=== PATIENT | female | born 1940 | race Caucasian/White ===

== ENCOUNTER 2020-06-19 11:06 | Observation (INO) ==
[2020-06-19] MEDS ORDERED: SODIUM CHLORIDE 0.9% 1000ML 1,000 ML IV STA (11:45)
--- NOTE | 2020-06-19 11:58 | XRay Report ---
XR chest 1V portable HISTORY: SEPSIS COMPARISON: None. FINDINGS: No focal lung consolidations to suggest pneumonia. No pleural effusions. No pneumothorax. T he heart is normal in size. There are low lung volumes. Lobular appearance to the right hilum measuri ng up to 2.2 cm. IMPRESSION: 1. No focal lung consolidations to suggest pneumonia. 2. Lobular appearance to the right hilum measuring up to 2.2 cm. This could be due to normal overlapp ing pulmonary vessels. Comparison to old studies or follow-up PA and lateral views of the chest are r ecommended to exclude the possibility of a right hilar nodule/lymph node. ACT 112: Negative or not required by law. Electronically signed by: Tono Page M.D. 06/19/2020 11:57 AM
[2020-06-19 12:03] LABS: Basophils # (auto) 0.04 K/uL (0-0.2); Basophils % (auto) 0.4 %; Eosinophils # (auto) 0.22 K/uL (0-0.5); Eosinophils % (auto) 2.3 %; Hematocrit (blood only) 31.5 % (37-47); Hemoglobin 9.5 g/dL (12.0-16.0); Immature Granulocytes # (auto) 0.02 K/uL (0.00-0.02); Immature Granulocytes % (auto) 0.2 %; Lymphocytes # (auto) 1.34 K/uL (1.2-3.4); Lymphocytes % (auto) 13.9 %; Mean Corpuscular Hemoglobin 26.5 pg (25-34); Mean Corpuscular Hgb Conc 30.2 g/dL (32-36); Mean Platelet Volume 9.4 fL (7.4-10.4); Monocytes # (auto) 0.86 K/uL (0.11-0.59); Monocytes % (auto) 8.9 %; Neutrophils # (auto) 7.15 K/uL (1.4-6.5); Neutrophils % (auto) 74.3 %; Platelet Count 330 K/uL (130-400); RDW Coefficient of Variation 14.8 % (11.5-14.5); RDW Standard Deviation 47.9 fL (36.4-46.3); Red Blood Count 3.58 M/uL (4.2-5.4); White Blood Count 9.63 K/uL (4.8-10.8)
[2020-06-19 12:14] LABS: Partial Thromboplastin Ratio 1.1; Partial Thromboplastin Time 30.7 Seconds (21.0-31.0)
[2020-06-19 12:24] LABS: Alanine Aminotransferase 20 U/L (12-78); Albumin Level 2.8 gm/dl (3.4-5.0); Aspartate Aminotransferase 29 U/L (15-37); BUN Creatinine Ratio 24.4 (10-20); Blood Urea Nitrogen 46 mg/dl (7-18); Carbon Dioxide 30 mmol/L (21-32); Chloride 108 mmol/L (98-107); Creatinine Clr Calc Pharmacy 29.2 ml/min; Est GFR (African American) 29.3; Est GFR (Non-African American) 25.3; Glucose 135 mg/dl (70-99); Potassium 4.5 mmol/L (3.5-5.1); Sodium 142 mmol/L (136-145)
[2020-06-19 12:28] LABS: Albumin Globulin Ratio 0.7 (0.9-2); Alkaline Phosphatase 82 U/L (45-117); Bilirubin,Total 0.2 mg/dl (0.2-1); Globulin 4.1 gm/dl (2.5-4.0); Total Protein 6.9 gm/dl (6.4-8.2); Troponin I < 0.015 ng/ml (0-0.045)
[2020-06-19 12:31] LABS: Appearance Urine Clear (Clear); Bilirubin Urine Negative (Negative); Blood Urine Negative (Negative); Color Urine Yellow; Glucose Urine UA Negative (Negative); Ketones Urine Negative (Negative); Leukocyte Esterase Urine Negative (Negative); Nitrite Urine Negative (Negative); Protein Urine Negative (Negative); Specific Gravity Urine 1.017 (1.000-1.030); Urobilinogen Urine Negative (Negative)
--- NOTE | 2020-06-19 13:07 | XRay Report ---
TWO VIEW CHEST CLINICAL HISTORY: Follow-up abnormal chest x-ray. FINDINGS: PA and lateral chest radiographs are compared to study dated 06/19/2020. The cardiomediasti nal silhouette is unremarkable. No hilar abnormality is identified. The finding of concern on the liyah or examination corresponds to the prominent right pulmonary artery. There is mild bibasilar atelectas is. The lungs and pleural spaces are otherwise clear. There is no pneumothorax. The skeletal structur es are osteopenic. The bony thorax appears intact. IMPRESSION: No active disease in the chest. ACT 112: Negative or not required by law. Electronically signed by: Josh Barton M.D. 06/19/2020 1:06 PM
--- NOTE | 2020-06-19 13:39 | CT Scan Report ---
CT SCAN OF THE BRAIN WITHOUT IV CONTRAST CLINICAL HISTORY: Change in mental status. COMPARISON STUDY: No priors. TECHNIQUE: Unenhanced axial CT scan of the brain is performed from the vertex to the skull base. A do se lowering technique was utilized adhering to the principles of ALARA. CT DOSE: 788.63 mGycm FINDINGS: Brain parenchyma: There are age-related involutional changes noting moderate subcortical and periven tricular microangiopathic change. There is no hemorrhage, mass effect, or evidence of acute territori al ischemia by CT criteria. Lopez-white matter differentiation is preserved. No extra-axial fluid home ection is seen. Ventricles, sulci, cisterns: Prominent secondary to involutional change. Intracranial vasculature: There is atherosclerotic calcification of the cavernous carotid and vertebr al arteries. Calvarium: Unremarkable. Sinuses and mastoids: There is a 10 mm retention cyst in the right maxillary antrum. The visualized p aranasal sinuses are otherwise clear. The mastoid air cells are well pneumatized. Orbits: The bony orbits are grossly intact. There are bilateral ocular lens implants. IMPRESSION: There is no hemorrhage, mass effect, or evidence of acute territorial ischemia by CT alejandra langston. ACT 112: Negative or not required by law. Electronically signed by: Josh Barton M.D. 06/19/2020 1:37 PM
[2020-06-19] MEDS ORDERED: CEFEPIME 2,000 MG/20 ML VIAL IV STA (14:36)
--- NOTE | 2020-06-19 16:32 | History & Physical Report ---
Date of Service June 19, 2020 Assessment & Plan (1) Cellulitis of both lower extremities: * Patient presents with extensive cellulitic changes to the bilateral lower extremities. * Initially treated with cefepime in the emergency department. We will continue at this time. * Extensive scaling of skin and likely chronic venous changes with the superimposed cellulitis. * Appreciate wound consult for guidance. * Had a long conversation with the patient's son regarding his mother's condition. He states that she has been declining over the last few weeks. He states that the cellulitis of the bilateral lower extremities has been reoccurring. He is her medical proxy at this point. He states that he does have paperwork available for this. He reports that this time, and in conversation with his mother, it is agreed that she would be DNR/DNI at this time. (2) Confusion: * No focal neurological exam findings. * CT head unremarkable. * Likely encephalopathy secondary to underlying infectious changes. * Continue to monitor with treatment course. (3) Dyslipidemia: * Continue home medications. (4) IDDM (insulin dependent diabetes mellitus): * Appreciate pharmacy consultation for glycemic management. (5) Mood disorder: * Continue home medications as prescribed. (6) Hypertension: * Continue home medications as prescribed. History of Present Illness Primary Care Provider: Kit Cancino Patient is a 79-year-old female with a significant past medical history of diabetes, hypertension, mood disorder, and recurrent cellulitis to the lower extremities. Patient lives at a nursing facility and [place]. Son reports that the patient has been "loopy" for the past few weeks. He reports that she has been in contact with him by phone and states that she has been confused and fe els as though she is living in someone else's house and she is being evicted. Per son, she has had a history of ESBL UTI as well. They did request that the patient be sent to our facility from her primary residence at [facility] versus [place] where she is usually treated. Upon evaluation in the emergency department, the patient is awake and alert. She is pleasantly confused at times. She knows that she is at a hospital. She knows she is in [place]. Otherwise, she is a poor historian. She complains of pain to the bilateral lower extremities. Otherwise, she offers no other complaints at this time. Allergies Allergy/AdvReac Type Severity Reaction Status Date / Time iodine Allergy Unknown Unverified 06/19/20 13:02 Penicillins Allergy Unknown Unverified 06/19/20 13:02 Sulfa (Sulfonamide Allergy Unknown Unverified 06/19/20 13:02 Antibiotics) Home Medications Medication Instructions Recorded Confirmed Type Lantus Solostar U-100 Insulin 10 unit SUBCUT DAILY 06/19/20 06/19/20 History acetaminophen 650 mg PO BID 06/19/20 06/19/20 History ascorbic acid (vitamin C) [Vitamin 500 mg PO BID 06/19/20 06/19/20 History C] aspirin 81 mg PO DAILY 06/19/20 06/19/20 History bumetanide 1 mg PO DAILY 06/19/20 06/19/20 History cholecalciferol (vitamin D3) 125 mcg PO DAILY 06/19/20 06/19/20 History [Vitamin D3] citalopram 20 mg PO DAILY 06/19/20 06/19/20 History gabapentin 300 mg PO BID 06/19/20 06/19/20 History gabapentin 600 mg PO HS 06/19/20 06/19/20 History insulin lispro [Humalog KwikPen 4 unit SUBCUT TID 06/19/20 06/19/20 History Insulin] meloxicam 7.5 mg PO DAILY 06/19/20 06/19/20 History metformin 1,000 mg PO DAILY 06/19/20 06/19/20 History metoprolol tartrate 25 mg PO BID 06/19/20 06/19/20 History oxybutynin chloride 10 mg PO HS 06/19/20 06/19/20 History potassium chloride 10 meq PO HS 06/19/20 06/19/20 History simvastatin 40 mg PO DAILY 06/19/20 06/19/20 History zinc gluconate 50 mg PO BID 06/19/20 06/19/20 History docusate sodium 100 mg PO BID PRN 10 Days #20 cap 06/23/20 Rx lisinopril 10 mg PO QAM 30 Days #30 tab 06/23/20 Rx Past Med/Surg History Medical History Dyslipidemia Hypertension IDDM (insulin dependent diabetes mellitus) Mood disorder Social History Smoking Status: Never smoker Second Hand Exposure: No; Do You Dip or Chew Tobacco: No; Tobacco Cessation Education Requested by Patient: No Hx Substance Use: No Preferred Language: Tunisian Communication Ability: Effective Beliefs That Will Affect Care: None Current Living Situation: Personal Care Facility Current Living Situation Comment: [facility] Feels Safe at Home: Yes Assistive Devices: Walker Review of Systems Review of Systems: A complete 10 point review of systems was reviewed with the patient with pertinent positives and negatives as per history of present illness. All else were negative. Physical Exam Physical Exam: VITAL SIGNS - Vital signs and nursing notes were reviewed. GENERAL - 79-year-old female appearing her stated age who is in no acute dis tress. Pleasantly confused. SKIN -significant erythema to the bilateral lower extremities from the mid calf to the feet with moderate edema and scaling of the skin. Moderately tender to touch. HEAD - NC/AT. EYES - PERRL with EOMI bilaterally. Sclera anicteric. EARS - No deformities of external structures noted on gross examination bilaterally. NOSE - Midline and without cyanosis. No epistaxis or purulent drainage noted. MOUTH/OROPHARYNX - Without perioral cyanosis. Buccal mucosa pink and dry. NECK - Neck with FROM. Supple to palpation. No nuchal rigidity. LUNGS - Chest wall symmetric without accessory muscle use, intercostals retractions, or central cyanosis. Normal vesicular breath sounds CTA B/L. No wheezes, rales, or rhonchi appreciated. CARDIAC - RRR with S1/S2. No murmur, rubs, or gallops appreciated. ABDOMEN - Abdominal contour obese without pulsations or visible masses. BS normoactive all four quadrants. No tenderness, palpable masses, hepatosplenomegaly, or ascites noted. EXTREMITIES - No clubbing or peripheral cyanosis. No pretibial edema present. +3/5 radial and dorsalis pedis pulses palpated throughout. +5/5 strength noted in UE/LE bilaterally. NEUROLOGIC - Cranial nerves II through XII grossly intact. Sensory intact to light touch throughout. PSYCH -patient is awake and alert. She knows that she is in [place] and had a hospital. She is able to answer simple questions appropriately. She is pleasantly confused at times. Results & Data Results & Data ([facility]) Vital Signs (Past 12 Hours) Vital Signs Temp Pulse Resp BP Pulse Ox 06/19/20 15:31 121/74 94 06/19/20 15:30 94 06/19/20 15:20 95 06/19/20 15:10 94 06/19/20 15:01 95 06/19/20 15:00 122/73 94 06/19/20 14:50 89 95 06/19/20 14:40 90 95 06/19/20 14:31 88 15 93 06/19/20 14:30 91 H 13 111/62 93 06/19/20 14:20 89 12 93 06/19/20 14:10 89 14 94 06/19/20 14:01 91 H 12 95 06/19/20 14:00 92 H 12 126/75 95 06/19/20 13:50 90 14 96 06/19/20 13:40 92 H 14 99 06/19/20 13:39 90 16 109/72 99 06/19/20 13:38 99 H 16 06/19/20 13:10 95 H 06/19/20 13:01 85 93 06/19/20 13:00 95 H 150/85 H 95 06/19/20 12:50 92 H 94 06/19/20 12:45 93 H 130/79 95 06/19/20 12:44 105 H 96 06/19/20 12:20 91 H 16 94 06/19/20 12:10 93 H 19 95 06/19/20 12:05 90 13 128/106 H 97 06/19/20 12:01 77 15 141/78 H 06/19/20 12:00 90 16 06/19/20 11:50 92 H 23 96 06/19/20 11:46 97 06/19/20 11:40 90 14 06/19/20 11:30 90 14 06/19/20 11:21 90 14 98 06/19/20 11:10 37.0 C 90 22 142/65 H 98 06/19/20 11:09 90 12 142/65 H 99 Supervising Physician Co-Signing Physician Notes Attending addendum: I have physically seen this patient, have supervised the YOLANDA's activities, and agree with the H&P unless as otherwise noted. Assessment and Plan: Bilateral lower extremity cellulitis- Continue cefepime begun in the ED Consult wound care. Confusion- Likely metabolic encephalopathy superimposed on general decline. CT head without acute findings. Follow response to cellulitis to see if symptoms improve IDDM- Glycemic consult Remaining orders and notations as noted PG Care Time/CCT Total # of Minutes Spent Total Time Spent with Patient: Total time spent is greater than 50% in coordination of care (as documented) at patient's floor/unit and/or counseling patient: Coding Level of Care Code 70211 Initial Inpt Care Lvl 3 Diagnoses Cellulitis of both lower extremities L03.115; L03.116 Confusion R41.0 Dyslipidemia E78.5 IDDM (insulin dependent diabetes mellitus) Mood disorder F39 Hypertension I10 Time Spent (min) 40
--- NOTE | 2020-06-19 19:01 | Emergency Department Note ---
History of Present Illness General Chief complaint: Infection Stated complaint: CELLULITIS BILAT LEGS, ESBL URINE Time Seen by Provider: 06/19/20 11:13 Source: patient (Unreliable), family (Son over the phone), RN notes reviewed and old records reviewed ([facility]) Mode of arrival: EMS Limitations: altered mental status (Unreliable, altered) History of Present Illness Provider complaint: Altered mental status "loopy," recent UTI, frequent leg infections This patient is a 79-year-old female who presents emergency department with complaints of altered mentation. Patient is a resident at the [facility] and has history of frequent UTI and bilateral lower extremity cellulitis. Patient was apparently admitted to [facility] last year for a similar presentation. Per her son she finished a course of antibiotics for UTI, but the symptoms did not clear. There has been no vomiting or fever reported. Pt denies SOB and CP. Home Medications Medication Instructions Recorded Confirmed Type acetaminophen 650 mg PO BID 06/19/20 06/19/20 History amlodipine 5 mg PO DAILY 06/19/20 06/19/20 History ascorbic acid (vitamin C) [Vitamin 500 mg PO BID 06/19/20 06/19/20 History C] aspirin [Aspirin Low-Strength] 81 mg PO DAILY 06/19/20 06/19/20 History bumetanide 1 mg PO DAILY 06/19/20 06/19/20 History cholecalciferol (vitamin D3) 125 mcg PO DAILY 06/19/20 06/19/20 History [Vitamin D3] citalopram 20 mg PO DAILY 06/19/20 06/19/20 History doxycycline hyclate 100 mg PO DAILY 06/19/20 06/19/20 History gabapentin 300 mg PO BID 06/19/20 06/19/20 History gabapentin 600 mg PO HS 06/19/20 06/19/20 History insulin glargine [Lantus Solostar 10 unit SUBCUT DAILY 06/19/20 06/19/20 History U-100 Insulin] insulin lispro [Humalog KwikPen 4 unit SUBCUT TID 06/19/20 06/19/20 History Insulin] meloxicam 7.5 mg PO DAILY 06/19/20 06/19/20 History metformin 1,000 mg PO DAILY 06/19/20 06/19/20 History metoprolol tartrate 25 mg PO BID 06/19/20 06/19/20 History oxybutynin chloride 10 mg PO HS 06/19/20 06/19/20 History potassium chloride 10 meq PO HS 06/19/20 06/19/20 History simvastatin 40 mg PO DAILY 06/19/20 06/19/20 History zinc gluconate 50 mg PO BID 06/19/20 06/19/20 History zolpidem 5 mg PO DAILY 06/19/20 06/19/20 History Allergies Allergy/AdvReac Type Severity Reaction Status Date / Time iodine Allergy Unknown Unverified 06/19/20 13:02 Penicillins Allergy Unknown Unverified 06/19/20 13:02 Sulfa (Sulfonamide Allergy Unknown Unverified 06/19/20 13:02 Antibiotics) Past Med/Surg History Medical History Dyslipidemia Hypertension IDDM (insulin dependent diabetes mellitus) Mood disorder Social History Smoking Status: Never smoker Second Hand Exposure: No; Do You Dip or Chew Tobacco: No; Tobacco Cessation Education Requested by Patient: No Hx Substance Use: No Preferred Language: Bulgarian Communication Ability: Effective Beliefs That Will Affect Care: None Current Living Situation: Personal Care Facility Current Living Situation Comment: Andriy Cochran Feels Safe at Home: Yes Assistive Devices: Walker Review of Systems See HPI for pertinent positives & negatives. and A total of 10 systems reviewed and were otherwise negative Physical Exam Vital Signs Vital Signs - 24 hr 06/19/20 11:09 06/19/20 11:10 06/19/20 11:21 Temperature 37.0 C Temperature Source Oral Pulse Rate 90 90 90 Pulse Rate from SpO2 Sensor 89 89 Respiratory Rate 12 22 14 Blood Pressure 142/65 H 142/65 H Blood Pressure Mean 109 90 Blood Pressure Position Sitting Pulse Oximetry 99 98 98 Oxygen Delivery Method Room Air Sepsis Recent Fever Within 48 Hours No Sepsis New/Unexplained Change in Mental Status No Sepsis Action Taken by Nursing No Action Required 06/19/20 11:30 06/19/20 11:40 06/19/20 11:46 Temperature Temperature Source Pulse Rate 90 90 Pulse Rate from SpO2 Sensor Respiratory Rate 14 14 Blood Pressure Blood Pressure Mean Blood Pressure Position Pulse Oximetry 97 Oxygen Delivery Method Room Air Sepsis Recent Fever Within 48 Hours Sepsis New/Unexplained Change in Mental Status Sepsis Action Taken by Nursing 06/19/20 11:50 06/19/20 12:00 06/19/20 12:01 Temperature Temperature Source Pulse Rate 92 H 90 77 Pulse Rate from SpO2 Sensor 92 H Respiratory Rate 23 16 15 Blood Pressure 141/78 H Blood Pressure Mean 93 Blood Pressure Position Pulse Oximetry 96 Oxygen Delivery Method Room Air Sepsis Recent Fever Within 48 Hours Sepsis New/Unexplained Change in Mental Status Sepsis Action Taken by Nursing 06/19/20 12:05 06/19/20 12:10 06/19/20 12:20 Temperature Temperature Source Pulse Rate 90 93 H 91 H Pulse Rate from SpO2 Sensor 90 95 H 89 Respiratory Rate 13 19 16 Blood Pressure 128/106 H Blood Pressure Mean 117 Blood Pressure Position Pulse Oximetry 97 95 94 Oxygen Delivery Method Room Air Room Air Sepsis Recent Fever Within 48 Hours Sepsis New/Unexplained Change in Mental Status Sepsis Action Taken by Nursing 06/19/20 12:44 06/19/20 12:45 06/19/20 12:50 Temperature Temperature Source Pulse Rate 105 H 93 H 92 H Pulse Rate from SpO2 Sensor 93 H 92 H 92 H Respiratory Rate Blood Pressure 130/79 Blood Pressure Mean 97 Blood Pressure Position Pulse Oximetry 96 95 94 Oxygen Delivery Method Room Air Room Air Room Air Sepsis Recent Fever Within 48 Hours Sepsis New/Unexplained Change in Mental Status Sepsis Action Taken by Nursing 06/19/20 13:00 06/19/20 13:01 06/19/20 13:10 Temperature Temperature Source Pulse Rate 95 H 85 95 H Pulse Rate from SpO2 Sensor 95 H 94 H Respiratory Rate Blood Pressure 150/85 H Blood Pressure Mean 102 Blood Pressure Position Pulse Oximetry 95 93 Oxygen Delivery Method Room Air Room Air Sepsis Recent Fever Within 48 Hours Sepsis New/Unexplained Change in Mental Status Sepsis Action Taken by Nursing 06/19/20 13:38 06/19/20 13:39 06/19/20 13:40 Temperature Temperature Source Pulse Rate 99 H 90 92 H Pulse Rate from SpO2 Sensor 89 92 H Respiratory Rate 16 16 14 Blood Pressure 109/72 Blood Pressure Mean 89 Blood Pressure Position Pulse Oximetry 99 99 Oxygen Delivery Method Room Air Room Air Sepsis Recent Fever Within 48 Hours Sepsis New/Unexplained Change in Mental Status Sepsis Action Taken by Nursing 06/19/20 13:50 06/19/20 14:00 06/19/20 14:01 Temperature Temperature Source Pulse Rate 90 92 H 91 H Pulse Rate from SpO2 Sensor 90 91 H 90 Respiratory Rate 14 12 12 Blood Pressure 126/75 Blood Pressure Mean 96 Blood Pressure Position Pulse Oximetry 96 95 95 Oxygen Delivery Method Room Air Room Air Room Air Sepsis Recent Fever Within 48 Hours Sepsis New/Unexplained Change in Mental Status Sepsis Action Taken by Nursing 06/19/20 14:10 06/19/20 14:20 06/19/20 14:30 Temperature Temperature Source Pulse Rate 89 89 91 H Pulse Rate from SpO2 Sensor 89 89 90 Respiratory Rate 14 12 13 Blood Pressure 111/62 Blood Pressure Mean 80 Blood Pressure Position Pulse Oximetry 94 93 93 Oxygen Delivery Method Room Air Room Air Room Air Sepsis Recent Fever Within 48 Hours Sepsis New/Unexplained Change in Mental Status Sepsis Action Taken by Nursing 06/19/20 14:31 06/19/20 14:40 06/19/20 14:50 Temperature Temperature Source Pulse Rate 88 90 89 Pulse Rate from SpO2 Sensor 88 90 89 Respiratory Rate 15 Blood Pressure Blood Pressure Mean Blood Pressure Position Pulse Oximetry 93 95 95 Oxygen Delivery Method Room Air Room Air Room Air Sepsis Recent Fever Within 48 Hours Sepsis New/Unexplained Change in Mental Status Sepsis Action Taken by Nursing 06/19/20 15:00 06/19/20 15:01 06/19/20 15:10 Temperature Temperature Source Pulse Rate Pulse Rate from SpO2 Sensor 91 H 90 89 Respiratory Rate Blood Pressure 122/73 Blood Pressure Mean 101 Blood Pressure Position Pulse Oximetry 94 95 94 Oxygen Delivery Method Room Air Room Air Room Air Sepsis Recent Fever Within 48 Hours Sepsis New/Unexplained Change in Mental Status Sepsis Action Taken by Nursing 06/19/20 15:20 06/19/20 15:30 06/19/20 15:31 Temperature Temperature Source Pulse Rate Pulse Rate from SpO2 Sensor 90 92 H 93 H Respiratory Rate Blood Pressure 121/74 Blood Pressure Mean 79 Blood Pressure Position Pulse Oximetry 95 94 94 Oxygen Delivery Method Room Air Room Air Room Air Sepsis Recent Fever Within 48 Hours Sepsis New/Unexplained Change in Mental Status Sepsis Action Taken by Nursing 06/19/20 15:32 06/19/20 15:40 06/19/20 15:50 Temperature Temperature Source Pulse Rate Pulse Rate from SpO2 Sensor 92 H 91 H 87 Respiratory Rate Blood Pressure Blood Pressure Mean Blood Pressure Position Pulse Oximetry 92 95 96 Oxygen Delivery Method Room Air Room Air Room Air Sepsis Recent Fever Within 48 Hours Sepsis New/Unexplained Change in Mental Status Sepsis Action Taken by Nursing 06/19/20 16:00 06/19/20 16:01 06/19/20 16:10 Temperature Temperature Source Pulse Rate Pulse Rate from SpO2 Sensor 88 88 91 H Respiratory Rate 18 16 Blood Pressure 132/63 Blood Pressure Mean 108 Blood Pressure Position Pulse Oximetry 97 97 98 Oxygen Delivery Method Room Air Room Air Room Air Sepsis Recent Fever Within 48 Hours Sepsis New/Unexplained Change in Mental Status Sepsis Action Taken by Nursing 06/19/20 16:20 06/19/20 16:30 06/19/20 16:31 Temperature Temperature Source Pulse Rate Pulse Rate from SpO2 Sensor 92 H 92 H 93 H Respiratory Rate 20 18 Blood Pressure 139/70 Blood Pressure Mean 101 Blood Pressure Position Pulse Oximetry 94 95 96 Oxygen Delivery Method Room Air Room Air Room Air Sepsis Recent Fever Within 48 Hours Sepsis New/Unexplained Change in Mental Status Sepsis Action Taken by Nursing 06/19/20 16:40 06/19/20 16:50 06/19/20 18:42 Temperature Temperature Source Pulse Rate Pulse Rate from SpO2 Sensor 95 H 92 H Respiratory Rate 18 Blood Pressure Blood Pressure Mean Blood Pressure Position Pulse Oximetry 100 93 Oxygen Delivery Method Room Air Room Air Room Air Sepsis Recent Fever Within 48 Hours Sepsis New/Unexplained Change in Mental Status Sepsis Action Taken by Nursing Vital signs reviewed. General: Chronically ill-appearing 79 yo female, in no significant distress. HEENT: No scleral icterus, PERRLA, neck supple. Atraumatic. Cardiovascular: Regular rate and rhythm, no extra sounds. Pulmonary: Clear to auscultation bilaterally, normal work of breathing. Abdomen: Soft, nontender, nondistended, positive bowel sounds. Musculoskeletal: Atraumatic, no peripheral edema. Neurologic: Patient somnolent but awake, disoriented to place and city, but when corrected can repeat correctly. follows commands put generally weak. Skin: Warm, dry, BLE with venous stasis changes, crusting/flaking to distal skin. Minimal oozing and slight underlying erythema. No lymphangitic streaking. Course Administered Medications Acetaminophen (Acetaminophen 325 Mg Tab) 650 mg PO BID DONNA Stop: 07/19/20 20:59 Last Admin: 06/22/20 09:14 Dose: 650 mg Documented by: [id number] Admin: 06/21/20 20:13 Dose: 650 mg Documented by: [id number] Admin: 06/21/20 07:58 Dose: 650 mg Documented by: [id number] Admin: 06/20/20 21:33 Dose: 650 mg Documented by: [id number] Admin: 06/20/20 08:21 Dose: 650 mg Documented by: [id number] Admin: 06/19/20 21:43 Dose: 650 mg Documented by: [id number] Amlodipine Besylate (Amlodipine Besylate 5 Mg Tab) 5 mg PO DAILY DONNA Stop: 07/20/20 08:59 Last Admin: 06/22/20 09:15 Dose: 5 mg Documented by: [id number] Admin: 06/21/20 07:56 Dose: 5 mg Documented by: [id number] Admin: 06/20/20 08:17 Dose: 5 mg Documented by: [id number] Ascorbic Acid (Ascorbic Acid 500 Mg Tab) 500 mg PO BID DONNA Stop: 07/19/20 20:59 Last Admin: 06/22/20 09:15 Dose: 500 mg Documented by: [id number] Admin: 06/21/20 20:15 Dose: 500 mg Documented by: [id number] Admin: 06/21/20 07:54 Dose: 500 mg Documented by: [id number] Admin: 06/20/20 21:34 Dose: 500 mg Documented by: [id number] Admin: 06/20/20 08:21 Dose: 500 mg Documented by: [id number] Admin: 06/19/20 21:42 Dose: 500 mg Documented by: [id number] Aspirin (Aspirin 81 Mg Ectab) 81 mg PO DAILY DONNA Stop: 07/20/20 08:59 Last Admin: 06/22/20 09:16 Dose: 81 mg Documented by: [id number] Admin: 06/21/20 07:55 Dose: 81 mg Documented by: [id number] Admin: 06/20/20 08:14 Dose: 81 mg Documented by: [id number] Bumetanide (Bumetanide 1 Mg Tab) 1 mg PO DAILY DONNA Stop: 07/20/20 08:59 Last Admin: 06/22/20 09:14 Dose: 1 mg Documented by: [id number] Admin: 06/21/20 07:56 Dose: 1 mg Documented by: [id number] Admin: 06/20/20 08:13 Dose: 1 mg Documented by: [id number] Cefdinir (Cefdinir 300 Mg Cap) 300 mg PO Q12 DONNA Stop: 06/28/20 20:59 Last Admin: 06/22/20 09:15 Dose: 300 mg Documented by: [id number] Admin: 06/21/20 20:15 Dose: 300 mg Documented by: [id number] Citalopram Hydrobromide (Citalopram 20 Mg Tab) 20 mg PO DAILY DONNA Stop: 07/20/20 08:59 Last Admin: 06/22/20 09:14 Dose: 20 mg Documented by: [id number] Admin: 06/21/20 07:55 Dose: 20 mg Documented by: [id number] Admin: 06/20/20 08:14 Dose: 20 mg Documented by: [id number] Gabapentin (Gabapentin 600 Mg Tab) 600 mg PO HS DONNA Stop: 07/19/20 20:59 Last Admin: 06/21/20 20:16 Dose: 600 mg Documented by: [id number] Admin: 06/20/20 21:34 Dose: 600 mg Documented by: [id number] Admin: 06/19/20 21:54 Dose: 600 mg Documented by: [id number] Gabapentin (Gabapentin 300 Mg Cap) 300 mg PO BID@0900,1400 DONNA Stop: 07/20/20 08:59 Last Admin: 06/22/20 15:19 Dose: 300 mg Documented by: [id number] Admin: 06/22/20 09:15 Dose: 300 mg Documented by: [id number] Admin: 06/21/20 14:00 Dose: 300 mg Documented by: [id number] Admin: 06/21/20 07:57 Dose: 300 mg Documented by: [id number] Admin: 06/20/20 13:59 Dose: 300 mg Documented by: [id number] Admin: 06/20/20 08:17 Dose: 300 mg Documented by: [id number] Heparin Sodium (Porcine) (Heparin Sod 5,000 Unit/0.5 Ml Vial) 7,500 units SQ Q8 DONNA Stop: 07/19/20 21:59 Last Admin: 06/22/20 15:18 Dose: Not Given Documented by: [id number] Admin: 06/22/20 05:12 Dose: 7,500 units Documented by: [id number] Admin: 06/21/20 20:14 Dose: 7,500 units Documented by: [id number] Admin: 06/21/20 14:03 Dose: 7,500 units Documented by: [id number] Admin: 06/21/20 06:10 Dose: 7,500 units Documented by: [id number] Admin: 06/20/20 21:34 Dose: 7,500 units Documented by: [id number] Admin: 06/20/20 13:59 Dose: 7,500 units Documented by: [id number] Admin: 06/20/20 05:07 Dose: 7,500 units Documented by: [id number] Admin: 06/19/20 21:55 Dose: 7,500 units Documented by: [id number] Insulin Aspart (Insulin Aspart 100 Units/Ml 3 Ml Pen) 0 units SC ACHS DONNA; Protocol Stop: 07/19/20 20:59 Last Admin: 06/22/20 17:20 Dose: 5 units Documented by: [id number] Cosigned by: [id number] Admin: 06/22/20 12:18 Dose: 7 units Documented by: [id number] Cosigned by: [id number] Admin: 06/22/20 09:09 Dose: 3 units Documented by: [id number] Cosigned by: [id number] Admin: 06/21/20 20:56 Dose: Not Given Documented by: [id number] Admin: 06/21/20 17:51 Dose: 6 units Documented by: [id number] Cosigned by: [id number] Admin: 06/21/20 12:12 Dose: 11 units Documented by: [id number] Cosigned by: [id number] Admin: 06/21/20 08:23 Dose: 4 units Documented by: [id number] Cosigned by: [id number] Admin: 06/20/20 21:35 Dose: Not Given Documented by: [id number] Admin: 06/20/20 17:30 Dose: 9 units Documented by: [id number] Cosigned by: [id number] Admin: 06/20/20 12:25 Dose: 9 units Documented by: [id number] Cosigned by: [id number] Admin: 06/20/20 09:02 Dose: 5 units Documented by: [id number] Cosigned by: [id number] Admin: 06/19/20 22:01 Dose: Not Given Documented by: [id number] Cosigned by: [id number] Insulin Glargine (Insulin Glargine Solostar 100 Units/Ml 3 Ml Pen) 10 units SC DAILY DONNA Stop: 07/20/20 08:59 Last Admin: 06/22/20 09:11 Dose: 10 units Documented by: [id number] Cosigned by: [id number] Admin: 06/21/20 08:22 Dose: 10 units Documented by: [id number] Cosigned by: [id number] Admin: 06/20/20 09:01 Dose: 10 units Documented by: [id number] Cosigned by: [id number] Meloxicam (Meloxicam 7.5 Mg Tab) 7.5 mg PO DAILY [facility] Stop: 07/20/20 08:59 Last Admin: 06/22/20 09:14 Dose: 7.5 mg Documented by: [id number] Admin: 06/21/20 07:57 Dose: 7.5 mg Documented by: [id number] Admin: 06/20/20 09:03 Dose: 7.5 mg Documented by: [id number] Metoprolol Tartrate (Metoprolol Tartrate 25 Mg Tab) 25 mg PO BID [facility] Stop: 07/19/20 20:59 Last Admin: 06/22/20 09:14 Dose: 25 mg Documented by: [id number] Admin: 06/21/20 20:13 Dose: 25 mg Documented by: [id number] Admin: 06/21/20 07:56 Dose: 25 mg Documented by: [id number] Admin: 06/20/20 21:34 Dose: 25 mg Documented by: [id number] Admin: 06/20/20 08:15 Dose: 25 mg Documented by: [id number] Admin: 06/19/20 21:43 Dose: 25 mg Documented by: [id number] Miconazole Nitrate (Miconazole Nitrate Powder 43 Gm) 1 appln EXT PRN PRN PRN Reason: Affected Skin Folds Stop: 07/19/20 20:14 Last Admin: 06/19/20 21:46 Dose: 1 appln Documented by: [id number] Oxybutynin Chloride (Oxybutynin Chloride Xl 5 Mg Tabcr) 10 mg PO HS [facility] Stop: 07/19/20 20:59 Last Admin: 06/21/20 20:15 Dose: 10 mg Documented by: [id number] Admin: 06/20/20 21:34 Dose: 10 mg Documented by: [id number] Admin: 06/19/20 21:41 Dose: 10 mg Documented by: [id number] Potassium Chloride (Potassium Chloride 10 Meq Tabcr) 10 meq PO [facility] Stop: 07/19/20 20:59 Last Admin: 06/21/20 20:13 Dose: 10 meq Documented by: [id number] Admin: 06/20/20 21:34 Dose: 10 meq Documented by: [id number] Admin: 06/19/20 21:41 Dose: 10 meq Documented by: [id number] Simvastatin (Simvastatin 40 Mg Tab) 40 mg PO DAILY DONNA Stop: 07/20/20 08:59 Last Admin: 06/22/20 09:16 Dose: 40 mg Documented by: [id number] Admin: 06/21/20 07:57 Dose: 40 mg Documented by: [id number] Admin: 06/20/20 08:23 Dose: 40 mg Documented by: [id number] Vitamin D (Cholecalciferol 1,000 Units 25 Mcg Tab) 5,000 units PO DAILY DONNA Stop: 07/20/20 08:59 Last Admin: 06/22/20 09:16 Dose: 5,000 units Documented by: [id number] Admin: 06/21/20 07:55 Dose: 5,000 units Documented by: [id number] Admin: 06/20/20 08:22 Dose: 5,000 units Documented by: [id number] Zinc Sulfate (Zinc Sulfate 220 Mg Capsule) 220 mg PO BID DONNA Stop: 07/19/20 20:59 Last Admin: 06/22/20 09:14 Dose: 220 mg Documented by: [id number] Admin: 06/21/20 20:13 Dose: 220 mg Documented by: [id number] Admin: 06/21/20 07:54 Dose: 220 mg Documented by: [id number] Admin: 06/20/20 21:38 Dose: 220 mg Documented by: [id number] Admin: 06/20/20 09:03 Dose: 220 mg Documented by: [id number] Admin: 06/19/20 21:41 Dose: 220 mg Documented by: [id number] Discontinued Medications Gabapentin (Gabapentin 300 Mg Cap) 300 mg PO BID DONNA Stop: 07/19/20 20:59 Last Admin: 06/19/20 23:32 Dose: Not Given Documented by: [id number] Sodium Chloride (Nss 1000ml) 1,000 mls @ 125 mls/hr IV .Q8H STA Stop: 06/19/20 19:44 Last Infusion: 06/19/20 23:32 Dose: 0 mls/hr Documented by: [id number] Infusion: 06/19/20 18:08 Dose: 0 mls/hr Documented by: [id number] Admin: 06/19/20 12:20 Dose: 125 mls/hr Documented by: [id number] Cefepime HCl (Maxipime) 2,000 mg in 20 mls @ 5 mls/min IV NOW STA; Protocol Stop: 06/19/20 14:39 Last Admin: 06/19/20 15:15 Dose: 5 mls/min Documented by: [id number] Sodium Chloride (Nss 1000ml) 1,000 mls @ 80 mls/hr IV .[id number] [facility] Stop: 07/19/20 19:44 Last Infusion: 06/21/20 07:14 Dose: 0 mls/hr Documented by: [id number] Infusion: 06/21/20 07:14 Dose: 0 mls/hr Documented by: [id number] Admin: 06/20/20 21:37 Dose: 80 mls/hr Documented by: [id number] Infusion: 06/20/20 21:36 Dose: 80 mls/hr Documented by: [id number] Admin: 06/20/20 09:06 Dose: 80 mls/hr Documented by: [id number] Infusion: 06/20/20 09:06 Dose: 80 mls/hr Documented by: [id number] Admin: 06/19/20 21:09 Dose: 80 mls/hr Documented by: [id number] Cefepime HCl 2,000 mg/ Syringe 20 mls @ 5 mls/min IV Q12H [facility]; Protocol Stop: 06/27/20 11:29 Last Admin: 06/21/20 11:22 Dose: 5 mls/min Documented by: [id number] Admin: 06/20/20 22:29 Dose: 5 mls/min Documented by: [id number] Admin: 06/20/20 12:18 Dose: 5 mls/min Documented by: [id number] Insulin Aspart (Insulin Aspart 100 Units/Ml 3 Ml Pen) 0 units SC TODAY@0000,0400 [facility]; Protocol Stop: 06/20/20 04:01 Last Admin: 06/20/20 04:48 Dose: Not Given Documented by: [id number] Cosigned by: [id number] Admin: 06/19/20 23:29 Dose: Not Given Documented by: [id number] Cosigned by: [id number] Medical Decision Making Differential Diagnosis Infection, hypoglycemia, electrolyte abnormalities, overdose, toxicologic, cardiac sources, intracerebral event, neurologic, trauma, as well as other pathologies. Medical Records Attestation: I reviewed the patient's medical records. Home Medications Current Medication List: was personally reviewed by me Laboratory Data Attestation: I reviewed the patient's lab results. Result diagrams: 06/22/20 05:56 06/22/20 05:56 Lab Results 06/19/20 06/19/20 06/19/20 Range/Units 11:52 11:52 11:52 WBC 9.63 (4.8-10.8) K/uL RBC 3.58 L (4.2-5.4) M/uL Hgb 9.5 L (12.0-16.0) g/dL Hct 31.5 L (37-47) % MCV 88.0 (80-100) fL MCH 26.5 (25-34) pg MCHC 30.2 L (32-36) g/dL RDW Std Deviation 47.9 H (36.4-46.3) fL RDW Coeff of Tanvi 14.8 H (11.5-14.5) % Plt Count 330 (130-400) K/uL MPV 9.4 (7.4-10.4) fL Immature Gran % (Auto) 0.2 % Neut % (Auto) 74.3 % Lymph % (Auto) 13.9 % Bertie % (Auto) 8.9 % Eos % (Auto) 2.3 % Baso % (Auto) 0.4 % Neut # (Auto) 7.15 H (1.4-6.5) K/uL Lymph # (Auto) 1.34 (1.2-3.4) K/uL Bertie # (Auto) 0.86 H (0.11-0.59) K/uL Eos # (Auto) 0.22 (0-0.5) K/uL Baso # (Auto) 0.04 (0-0.2) K/uL Immature Gran # (Auto) 0.02 (0.00-0.02) K/uL ESR (0-21) mm/hr PT 11.0 (9.0-12.0) Seconds INR 1.0 (0.9-1.1) APTT 30.7 (21.0-31.0) Seconds PTT Ratio 1.1 Sodium 142 (136-145) mmol/L Potassium 4.5 (3.5-5.1) mmol/L Chloride 108 H (98-107) mmol/L Carbon Dioxide 30 (21-32) mmol/L Anion Gap 4.0 (3-11) BUN 46 H (7-18) mg/dl Creatinine 1.87 H (0.6-1.2) mg/dl Est Cr Clr Drug Dosing 29.2 ml/min Est GFR ( Amer) 29.3 Est GFR (Non-Af Amer) 25.3 BUN/Creatinine Ratio 24.4 H (10-20) Glucose 135 H (70-99) mg/dl POC Glucose (70-99) mg/dl Estimat Average Glucose mg/dl Hemoglobin A1c (4.5-5.6) % Lactate (0.4-2.0) mmol/L Calcium 9.0 (8.5-10.1) mg/dl Magnesium 2.0 (1.8-2.4) mg/dl Total Bilirubin 0.2 (0.2-1) mg/dl AST 29 (15-37) U/L ALT 20 (12-78) U/L Alkaline Phosphatase 82 (45-117) U/L Troponin I < 0.015 (0-0.045) ng/ml C-Reactive Protein (0-0.29) mg/dl Total Protein 6.9 (6.4-8.2) gm/dl Albumin 2.8 L (3.4-5.0) gm/dl Globulin 4.1 H (2.5-4.0) gm/dl Albumin/Globulin Ratio 0.7 L (0.9-2) Procalcitonin (0-0.5) ng/ml Urine Color Urine Appearance (Clear) Urine pH (4.5-7.5) Ur Specific [place] (1.000-1.030) Urine Protein (Negative) Urine Glucose (UA) (Negative) Urine Ketones (Negative) Urine Blood (Negative) Urine Nitrite (Negative) Urine Bilirubin (Negative) Urine Urobilinogen (Negative) Ur Leukocyte Esterase (Negative) SARS-CoV-2 Ag (Rapid) (Negative) 06/19/20 06/19/20 06/19/20 Range/Units 11:52 11:52 12:20 WBC (4.8-10.8) K/uL RBC (4.2-5.4) M/uL Hgb (12.0-16.0) g/dL Hct (37-47) % MCV (80-100) fL MCH (25-34) pg MCHC (32-36) g/dL RDW Std Deviation (36.4-46.3) fL RDW Coeff of Tanvi (11.5-14.5) % Plt Count (130-400) K/uL MPV (7.4-10.4) fL Immature Gran % (Auto) % Neut % (Auto) % Lymph % (Auto) % Bertie % (Auto) % Eos % (Auto) % Baso % (Auto) % Neut # (Auto) (1.4-6.5) K/uL Lymph # (Auto) (1.2-3.4) K/uL Bertie # (Auto) (0.11-0.59) K/uL Eos # (Auto) (0-0.5) K/uL Baso # (Auto) (0-0.2) K/uL Immature Gran # (Auto) (0.00-0.02) K/uL ESR (0-21) mm/hr PT (9.0-12.0) Seconds INR (0.9-1.1) APTT (21.0-31.0) Seconds PTT Ratio Sodium (136-145) mmol/L Potassium (3.5-5.1) mmol/L Chloride (98-107) mmol/L Carbon Dioxide (21-32) mmol/L Anion Gap (3-11) BUN (7-18) mg/dl Creatinine (0.6-1.2) mg/dl Est Cr Clr Drug Dosing ml/min Est GFR ( Amer) Est GFR (Non-Af Amer) BUN/Creatinine Ratio (10-20) Glucose (70-99) mg/dl POC Glucose (70-99) mg/dl Estimat Average Glucose mg/dl Hemoglobin A1c (4.5-5.6) % Lactate 1.2 (0.4-2.0) mmol/L Calcium (8.5-10.1) mg/dl Magnesium (1.8-2.4) mg/dl Total Bilirubin (0.2-1) mg/dl AST (15-37) U/L ALT (12-78) U/L Alkaline Phosphatase (45-117) U/L Troponin I (0-0.045) ng/ml C-Reactive Protein (0-0.29) mg/dl Total Protein (6.4-8.2) gm/dl Albumin (3.4-5.0) gm/dl Globulin (2.5-4.0) gm/dl Albumin/Globulin Ratio (0.9-2) Procalcitonin 0.08 (0-0.5) ng/ml Urine Color Yellow Urine Appearance Clear (Clear) Urine pH 5.0 (4.5-7.5) Ur Specific [place] 1.017 (1.000-1.030) Urine Protein Negative (Negative) Urine Glucose (UA) Negative (Negative) Urine Ketones Negative (Negative) Urine Blood Negative (Negative) Urine Nitrite Negative (Negative) Urine Bilirubin Negative (Negative) Urine Urobilinogen Negative (Negative) Ur Leukocyte Esterase Negative (Negative) SARS-CoV-2 Ag (Rapid) (Negative) 06/19/20 06/19/20 06/19/20 Range/Units 12:34 19:59 19:59 WBC (4.8-10.8) K/uL RBC (4.2-5.4) M/uL Hgb (12.0-16.0) g/dL Hct (37-47) % MCV (80-100) fL MCH (25-34) pg MCHC (32-36) g/dL RDW Std Deviation (36.4-46.3) fL RDW Coeff of Tanvi (11.5-14.5) % Plt Count (130-400) K/uL MPV (7.4-10.4) fL Immature Gran % (Auto) % Neut % (Auto) % Lymph % (Auto) % Bertie % (Auto) % Eos % (Auto) % Baso % (Auto) % Neut # (Auto) (1.4-6.5) K/uL Lymph # (Auto) (1.2-3.4) K/uL Bertie # (Auto) (0.11-0.59) K/uL Eos # (Auto) (0-0.5) K/uL Baso # (Auto) (0-0.2) K/uL Immature Gran # (Auto) (0.00-0.02) K/uL ESR 60 H (0-21) mm/hr PT (9.0-12.0) Seconds INR (0.9-1.1) APTT (21.0-31.0) Seconds PTT Ratio Sodium (136-145) mmol/L Potassium (3.5-5.1) mmol/L Chloride (98-107) mmol/L Carbon Dioxide (21-32) mmol/L Anion Gap (3-11) BUN (7-18) mg/dl Creatinine (0.6-1.2) mg/dl Est Cr Clr Drug Dosing ml/min Est GFR ( Amer) Est GFR (Non-Af Amer) BUN/Creatinine Ratio (10-20) Glucose (70-99) mg/dl POC Glucose (70-99) mg/dl Estimat Average Glucose mg/dl Hemoglobin A1c (4.5-5.6) % Lactate (0.4-2.0) mmol/L Calcium (8.5-10.1) mg/dl Magnesium (1.8-2.4) mg/dl Total Bilirubin (0.2-1) mg/dl AST (15-37) U/L ALT (12-78) U/L Alkaline Phosphatase (45-117) U/L Troponin I (0-0.045) ng/ml C-Reactive Protein 3.22 H (0-0.29) mg/dl Total Protein (6.4-8.2) gm/dl Albumin (3.4-5.0) gm/dl Globulin (2.5-4.0) gm/dl Albumin/Globulin Ratio (0.9-2) Procalcitonin (0-0.5) ng/ml Urine Color Urine Appearance (Clear) Urine pH (4.5-7.5) Ur Specific [place] (1.000-1.030) Urine Protein (Negative) Urine Glucose (UA) (Negative) Urine Ketones (Negative) Urine Blood (Negative) Urine Nitrite (Negative) Urine Bilirubin (Negative) Urine Urobilinogen (Negative) Ur Leukocyte Esterase (Negative) SARS-CoV-2 Ag (Rapid) Negative (Negative) 06/19/20 06/19/20 06/20/20 Range/Units 21:29 23:26 03:51 WBC (4.8-10.8) K/uL RBC (4.2-5.4) M/uL Hgb (12.0-16.0) g/dL Hct (37-47) % MCV (80-100) fL MCH (25-34) pg MCHC (32-36) g/dL RDW Std Deviation (36.4-46.3) fL RDW Coeff of Tanvi (11.5-14.5) % Plt Count (130-400) K/uL MPV (7.4-10.4) fL Immature Gran % (Auto) % Neut % (Auto) % Lymph % (Auto) % Bertie % (Auto) % Eos % (Auto) % Baso % (Auto) % Neut # (Auto) (1.4-6.5) K/uL Lymph # (Auto) (1.2-3.4) K/uL Bertie # (Auto) (0.11-0.59) K/uL Eos # (Auto) (0-0.5) K/uL Baso # (Auto) (0-0.2) K/uL Immature Gran # (Auto) (0.00-0.02) K/uL ESR (0-21) mm/hr PT (9.0-12.0) Seconds INR (0.9-1.1) APTT (21.0-31.0) Seconds PTT Ratio Sodium (136-145) mmol/L Potassium (3.5-5.1) mmol/L Chloride (98-107) mmol/L Carbon Dioxide (21-32) mmol/L Anion Gap (3-11) BUN (7-18) mg/dl Creatinine (0.6-1.2) mg/dl Est Cr Clr Drug Dosing ml/min Est GFR ( Amer) Est GFR (Non-Af Amer) BUN/Creatinine Ratio (10-20) Glucose (70-99) mg/dl POC Glucose 114 H 116 H 101 H (70-99) mg/dl Estimat Average Glucose mg/dl Hemoglobin A1c (4.5-5.6) % Lactate (0.4-2.0) mmol/L Calcium (8.5-10.1) mg/dl Magnesium (1.8-2.4) mg/dl Total Bilirubin (0.2-1) mg/dl AST (15-37) U/L ALT (12-78) U/L Alkaline Phosphatase (45-117) U/L Troponin I (0-0.045) ng/ml C-Reactive Protein (0-0.29) mg/dl Total Protein (6.4-8.2) gm/dl Albumin (3.4-5.0) gm/dl Globulin (2.5-4.0) gm/dl Albumin/Globulin Ratio (0.9-2) Procalcitonin (0-0.5) ng/ml Urine Color Urine Appearance (Clear) Urine pH (4.5-7.5) Ur Specific [place] (1.000-1.030) Urine Protein (Negative) Urine Glucose (UA) (Negative) Urine Ketones (Negative) Urine Blood (Negative) Urine Nitrite (Negative) Urine Bilirubin (Negative) Urine Urobilinogen (Negative) Ur Leukocyte Esterase (Negative) SARS-CoV-2 Ag (Rapid) (Negative) 06/20/20 06/20/20 06/20/20 Range/Units 07:49 07:49 07:49 WBC 4.80 (4.8-10.8) K/uL RBC 3.29 L (4.2-5.4) M/uL Hgb 8.8 L (12.0-16.0) g/dL Hct 28.8 L (37-47) % MCV 87.5 (80-100) fL MCH 26.7 (25-34) pg MCHC 30.6 L (32-36) g/dL RDW Std Deviation 48.3 H (36.4-46.3) fL RDW Coeff of Tanvi 15.0 H (11.5-14.5) % Plt Count 294 (130-400) K/uL MPV 9.5 (7.4-10.4) fL Immature Gran % (Auto) 0.2 % Neut % (Auto) 57.7 % Lymph % (Auto) 25.6 % Bertie % (Auto) 12.1 % Eos % (Auto) 3.8 % Baso % (Auto) 0.6 % Neut # (Auto) 2.77 (1.4-6.5) K/uL Lymph # (Auto) 1.23 (1.2-3.4) K/uL Bertie # (Auto) 0.58 (0.11-0.59) K/uL Eos # (Auto) 0.18 (0-0.5) K/uL Baso # (Auto) 0.03 (0-0.2) K/uL Immature Gran # (Auto) 0.01 (0.00-0.02) K/uL ESR (0-21) mm/hr PT (9.0-12.0) Seconds INR (0.9-1.1) APTT (21.0-31.0) Seconds PTT Ratio Sodium 142 (136-145) mmol/L Potassium 4.7 (3.5-5.1) mmol/L Chloride 111 H (98-107) mmol/L Carbon Dioxide 31 (21-32) mmol/L Anion Gap 0 L (3-11) BUN 33 H (7-18) mg/dl Creatinine 1.23 H D (0.6-1.2) mg/dl Est Cr Clr Drug Dosing 43.1 ml/min Est GFR ( Amer) 48.7 Est GFR (Non-Af Amer) 42.0 BUN/Creatinine Ratio 26.7 H (10-20) Glucose 98 (70-99) mg/dl POC Glucose (70-99) mg/dl Estimat Average Glucose 154 mg/dl Hemoglobin A1c 7.0 H (4.5-5.6) % Lactate (0.4-2.0) mmol/L Calcium 8.1 L (8.5-10.1) mg/dl Magnesium (1.8-2.4) mg/dl Total Bilirubin (0.2-1) mg/dl AST (15-37) U/L ALT (12-78) U/L Alkaline Phosphatase (45-117) U/L Troponin I (0-0.045) ng/ml C-Reactive Protein (0-0.29) mg/dl Total Protein (6.4-8.2) gm/dl Albumin (3.4-5.0) gm/dl Globulin (2.5-4.0) gm/dl Albumin/Globulin Ratio (0.9-2) Procalcitonin (0-0.5) ng/ml Urine Color Urine Appearance (Clear) Urine pH (4.5-7.5) Ur Specific [place] (1.000-1.030) Urine Protein (Negative) Urine Glucose (UA) (Negative) Urine Ketones (Negative) Urine Blood (Negative) Urine Nitrite (Negative) Urine Bilirubin (Negative) Urine Urobilinogen (Negative) Ur Leukocyte Esterase (Negative) SARS-CoV-2 Ag (Rapid) (Negative) 06/20/20 06/20/20 06/20/20 Range/Units 07:49 07:49 11:41 WBC (4.8-10.8) K/uL RBC (4.2-5.4) M/uL Hgb (12.0-16.0) g/dL Hct (37-47) % MCV (80-100) fL MCH (25-34) pg MCHC (32-36) g/dL RDW Std Deviation (36.4-46.3) fL RDW Coeff of Tanvi (11.5-14.5) % Plt Count (130-400) K/uL MPV (7.4-10.4) fL Immature Gran % (Auto) % Neut % (Auto) % Lymph % (Auto) % Bertie % (Auto) % Eos % (Auto) % Baso % (Auto) % Neut # (Auto) (1.4-6.5) K/uL Lymph # (Auto) (1.2-3.4) K/uL Bertie # (Auto) (0.11-0.59) K/uL Eos # (Auto) (0-0.5) K/uL Baso # (Auto) (0-0.2) K/uL Immature Gran # (Auto) (0.00-0.02) K/uL ESR (0-21) mm/hr PT (9.0-12.0) Seconds INR (0.9-1.1) APTT (21.0-31.0) Seconds PTT Ratio Sodium (136-145) mmol/L Potassium (3.5-5.1) mmol/L Chloride (98-107) mmol/L Carbon Dioxide (21-32) mmol/L Anion Gap (3-11) BUN (7-18) mg/dl Creatinine (0.6-1.2) mg/dl Est Cr Clr Drug Dosing ml/min Est GFR ( Amer) Est GFR (Non-Af Amer) BUN/Creatinine Ratio (10-20) Glucose (70-99) mg/dl POC Glucose 104 H 148 H (70-99) mg/dl Estimat Average Glucose mg/dl Hemoglobin A1c (4.5-5.6) % Lactate (0.4-2.0) mmol/L Calcium (8.5-10.1) mg/dl Magnesium (1.8-2.4) mg/dl Total Bilirubin (0.2-1) mg/dl AST (15-37) U/L ALT (12-78) U/L Alkaline Phosphatase (45-117) U/L Troponin I (0-0.045) ng/ml C-Reactive Protein (0-0.29) mg/dl Total Protein (6.4-8.2) gm/dl Albumin (3.4-5.0) gm/dl Globulin (2.5-4.0) gm/dl Albumin/Globulin Ratio (0.9-2) Procalcitonin 0.05 (0-0.5) ng/ml Urine Color Urine Appearance (Clear) Urine pH (4.5-7.5) Ur Specific [place] (1.000-1.030) Urine Protein (Negative) Urine Glucose (UA) (Negative) Urine Ketones (Negative) Urine Blood (Negative) Urine Nitrite (Negative) Urine Bilirubin (Negative) Urine Urobilinogen (Negative) Ur Leukocyte Esterase (Negative) SARS-CoV-2 Ag (Rapid) (Negative) 06/20/20 06/20/20 06/21/20 Range/Units 16:52 20:24 06:44 WBC 5.05 (4.8-10.8) K/uL RBC 3.25 L (4.2-5.4) M/uL Hgb 8.8 L (12.0-16.0) g/dL Hct 28.2 L (37-47) % MCV 86.8 (80-100) fL MCH 27.1 (25-34) pg MCHC 31.2 L (32-36) g/dL RDW Std Deviation 46.7 H (36.4-46.3) fL RDW Coeff of Tanvi 14.8 H (11.5-14.5) % Plt Count 284 (130-400) K/uL MPV 9.3 (7.4-10.4) fL Immature Gran % (Auto) 0.2 % Neut % (Auto) 56.4 % Lymph % (Auto) 29.7 % Bertie % (Auto) 9.5 % Eos % (Auto) 3.8 % Baso % (Auto) 0.4 % Neut # (Auto) 2.85 (1.4-6.5) K/uL Lymph # (Auto) 1.50 (1.2-3.4) K/uL Bertie # (Auto) 0.48 (0.11-0.59) K/uL Eos # (Auto) 0.19 (0-0.5) K/uL Baso # (Auto) 0.02 (0-0.2) K/uL Immature Gran # (Auto) 0.01 (0.00-0.02) K/uL ESR (0-21) mm/hr PT (9.0-12.0) Seconds INR (0.9-1.1) APTT (21.0-31.0) Seconds PTT Ratio Sodium (136-145) mmol/L Potassium (3.5-5.1) mmol/L Chloride (98-107) mmol/L Carbon Dioxide (21-32) mmol/L Anion Gap (3-11) BUN (7-18) mg/dl Creatinine (0.6-1.2) mg/dl Est Cr Clr Drug Dosing ml/min Est GFR ( Amer) Est GFR (Non-Af Amer) BUN/Creatinine Ratio (10-20) Glucose (70-99) mg/dl POC Glucose 158 H 128 H (70-99) mg/dl Estimat Average Glucose mg/dl Hemoglobin A1c (4.5-5.6) % Lactate (0.4-2.0) mmol/L Calcium (8.5-10.1) mg/dl Magnesium (1.8-2.4) mg/dl Total Bilirubin (0.2-1) mg/dl AST (15-37) U/L ALT (12-78) U/L Alkaline Phosphatase (45-117) U/L Troponin I (0-0.045) ng/ml C-Reactive Protein (0-0.29) mg/dl Total Protein (6.4-8.2) gm/dl Albumin (3.4-5.0) gm/dl Globulin (2.5-4.0) gm/dl Albumin/Globulin Ratio (0.9-2) Procalcitonin (0-0.5) ng/ml Urine Color Urine Appearance (Clear) Urine pH (4.5-7.5) Ur Specific [place] (1.000-1.030) Urine Protein (Negative) Urine Glucose (UA) (Negative) Urine Ketones (Negative) Urine Blood (Negative) Urine Nitrite (Negative) Urine Bilirubin (Negative) Urine Urobilinogen (Negative) Ur Leukocyte Esterase (Negative) SARS-CoV-2 Ag (Rapid) (Negative) 06/21/20 06/21/20 Range/Units 06:44 07:47 WBC (4.8-10.8) K/uL RBC (4.2-5.4) M/uL Hgb (12.0-16.0) g/dL Hct (37-47) % MCV (80-100) fL MCH (25-34) pg MCHC (32-36) g/dL RDW Std Deviation (36.4-46.3) fL RDW Coeff of Tanvi (11.5-14.5) % Plt Count (130-400) K/uL MPV (7.4-10.4) fL Immature Gran % (Auto) % Neut % (Auto) % Lymph % (Auto) % Bertie % (Auto) % Eos % (Auto) % Baso % (Auto) % Neut # (Auto) (1.4-6.5) K/uL Lymph # (Auto) (1.2-3.4) K/uL Bertie # (Auto) (0.11-0.59) K/uL Eos # (Auto) (0-0.5) K/uL Baso # (Auto) (0-0.2) K/uL Immature Gran # (Auto) (0.00-0.02) K/uL ESR (0-21) mm/hr PT (9.0-12.0) Seconds INR (0.9-1.1) APTT (21.0-31.0) Seconds PTT Ratio Sodium 144 (136-145) mmol/L Potassium 4.5 (3.5-5.1) mmol/L Chloride 110 H (98-107) mmol/L Carbon Dioxide 30 (21-32) mmol/L Anion Gap 4.0 (3-11) BUN 31 H (7-18) mg/dl Creatinine 1.33 H (0.6-1.2) mg/dl Est Cr Clr Drug Dosing 39.9 ml/min Est GFR ( Amer) 44.3 Est GFR (Non-Af Amer) 38.2 BUN/Creatinine Ratio 23.4 H (10-20) Glucose 119 H (70-99) mg/dl POC Glucose 136 H (70-99) mg/dl Estimat Average Glucose mg/dl Hemoglobin A1c (4.5-5.6) % Lactate (0.4-2.0) mmol/L Calcium 8.2 L (8.5-10.1) mg/dl Magnesium 1.9 (1.8-2.4) mg/dl Total Bilirubin (0.2-1) mg/dl AST (15-37) U/L ALT (12-78) U/L Alkaline Phosphatase (45-117) U/L Troponin I (0-0.045) ng/ml C-Reactive Protein (0-0.29) mg/dl Total Protein (6.4-8.2) gm/dl Albumin (3.4-5.0) gm/dl Globulin (2.5-4.0) gm/dl Albumin/Globulin Ratio (0.9-2) Procalcitonin (0-0.5) ng/ml Urine Color Urine Appearance (Clear) Urine pH (4.5-7.5) Ur Specific [place] (1.000-1.030) Urine Protein (Negative) Urine Glucose (UA) (Negative) Urine Ketones (Negative) Urine Blood (Negative) Urine Nitrite (Negative) Urine Bilirubin (Negative) Urine Urobilinogen (Negative) Ur Leukocyte Esterase (Negative) SARS-CoV-2 Ag (Rapid) (Negative) Imaging Data Radiologist's Impression: XR chest 1V portable HISTORY: SEPSIS COMPARISON: None. FINDINGS: No focal lung consolidations to suggest pneumonia. No pleural effusions. No pneumothorax. The heart is normal in size. There are low lung volumes. Lobular appearance to the right hilum measuring up to 2.2 cm. IMPRESSION: 1. No focal lung consolidations to suggest pneumonia. 2. Lobular appearance to the right hilum measuring up to 2.2 cm. This could be due to normal overlapping pulmonary vessels. Comparison to old studies or follow-up PA and lateral views of the chest are recommended to exclude the possibility of a right hilar nodule/lymph node. ACT 112: Negative or not required by law. Electronically signed by: Tono Page M.D. 06/19/2020 11:57 AM Dictated: 06/19/20 [id number]: 06/19/20 1154 TWO VIEW CHEST CLINICAL HISTORY: Follow-up abnormal chest x-ray. FINDINGS: PA and lateral chest radiographs are compared to study dated 06/19/2020. The cardiomediastinal silhouette is unremarkable. No hilar abnormality is identified. The finding of concern on the prior examination corresponds to the prominent right pulmonary artery. There is mild bibasilar atelectasis. The lungs and pleural spaces are otherwise clear. There is no pneumothorax. The skeletal structures are osteopenic. The bony thorax appears intact. IMPRESSION: No active disease in the chest. ACT 112: Negative or not required by law. Electronically signed by: Josh Barton M.D. 06/19/2020 1:06 PM Dictated: 06/19/20 [id number]: 06/19/201258 CT SCAN OF THE BRAIN WITHOUT IV CONTRAST CLINICAL HISTORY: Change in mental status. COMPARISON STUDY: No priors. TECHNIQUE: Unenhanced axial CT scan of the brain is performed from the vertex to the skull base. A dose lowering technique was utilized adhering to the principles of ALARA. CT DOSE: 788.63 mGycm FINDINGS: Brain parenchyma: There are age-related involutional changes noting moderate subcortical and periventricular microangiopathic change. There is no hemorrhage, mass effect, or evidence of acute territorial ischemia by CT criteria. Lopez- white matter differentiation is preserved. No extra-axial fluid collection is seen. Ventricles, sulci, cisterns: Prominent secondary to involutional change. Intracranial vasculature: There is atherosclerotic calcification of the cavernous carotid and vertebral arteries. Calvarium: Unremarkable. Sinuses and mastoids: There is a 10 mm retention cyst in the right maxillary antrum. The visualized paranasal sinuses are otherwise clear. The mastoid air cells are well pneumatized. Orbits: The bony orbits are grossly intact. There are bilateral ocular lens implants. IMPRESSION: There is no hemorrhage, mass effect, or evidence of acute territorial ischemia by CT criteria. ACT 112: Negative or not required by law. Electronically signed by: Josh Barton M.D. 06/19/2020 1:37 PM Dictated: 06/19/20 [id number]: 06/19/201334 US venous doppler LE BI CLINICAL HISTORY: Bilateral leg pain and swelling COMPARISON STUDY: No previous studies for comparison. FINDINGS: Real-time and color flow Doppler imaging were performed. Flow was seen within the femoral, popliteal and calf veins with no intraluminal thrombus demonstrated. The saphenous vein is patent. Note is made of bilateral lower leg edema IMPRESSION: No evidence of lower extremity DVT. ACT 112: Negative or not required by law. Electronically signed by: Km Faria M.D. 06/19/2020 8:37 PM Dictated: 06/19/202035Transcribed: 06/19/202035 ECG Data Attestation: I personally reviewed and interpreted this ECG as follows: Indication: + altered mental status Rate (beats per minute): 89 Rhythm: + normal sinus ECG Intervals/blocks: + Normal QRS and + Normal QT-c ECG [place]: + Normal ECG ST segments: + Normal ST segments ECG Findings: + Q waves (Anterior) Blood Pressure Blood Pressure Findings: Elevated blood pressure Blood Pressure Disposition: further management by hospitalist MDM Narrative This patient was evaluated and appeared to be in no significant distress. IV access was obtained and laboratory work was drawn. An order for cardiac monitoring was placed and the patient is noted to be in sinus rhythm at 89 bpm. Patient was able to answer some questions on my initial evaluation. IV fluids were initiated. Urinalysis was obtained and is clear. Bilateral lower extremities do appear to have some underlying cellulitis and chronic irritation/scaling. I did speak with the patient's son who states her alteration in mental status is usually went to an underlying infection. CT scan of the head is negative for acute intracranial abnormality, chest x-ray is negative for focal infiltrate. Bilateral lower extremity Dopplers are negative for DVT. Patient was given IV cefepime for presumed cellulitis treatment. Case was discussed with the hospitalist service and the patient will be evaluated for further management. Impression & Plan AMS (altered mental status), Cellulitis of both lower extremities Discharge Plan Visit Data Chief Complaint: Infection Stated Complaint: CELLULITIS BILAT LEGS, ESBL URINE ED Provider: Linda Lindsey Discharge Problem: AMS (altered mental status), Cellulitis of both lower extremities Patient Disposition: Admitted As Inpatient Discharge Instructions Interventions: ED Discharge Assessment Last Done: 06/19/20 18:42 Discharge Problem: AMS (altered mental status) Qualifiers: Altered mental status type: delirium Qualified Code(s): R41.0 - Disorientation, unspecified
[2020-06-19] MEDS ORDERED: GLUCOSE 40% GEL 15 GM TUBE PO PRN (19:14)
[2020-06-19] MEDS ORDERED: ACETAMINOPHEN 325 MG TAB PO PRN (19:14)
[2020-06-19] MEDS ORDERED: GLUCAGON FOR INJ 1 MG VIAL SQ PRN (19:14)
[2020-06-19] MEDS ORDERED: GLUCOSE 10 TABS/TUBE PO PRN (19:14)
[2020-06-19] MEDS ORDERED: DEXTROSE 50% 50 ML SYRINGE IV PRN (19:14)
[2020-06-19] MEDS ORDERED: CARBOHYDRATES FOR HYPOGLYCEMIA PO PRN (19:14)
[2020-06-19] MEDS ORDERED: PHARMACY GLYCEMIC MGMT CONSULT PRN (19:38)
[2020-06-19] MEDS ORDERED: MICONAZOLE NITRATE POWDER 43 GM EXT PRN (20:15)
--- NOTE | 2020-06-19 20:38 | Ultrasound Report ---
US venous doppler LE BI CLINICAL HISTORY: Bilateral leg pain and swelling COMPARISON STUDY: No previous studies for comparison. FINDINGS: Real-time and color flow Doppler imaging were performed. Flow was seen within the femoral, popliteal and calf veins with no intraluminal thrombus demonstrated. The saphenous vein is patent. No te is made of bilateral lower leg edema IMPRESSION: No evidence of lower extremity DVT. ACT 112: Negative or not required by law. Electronically signed by: Km Faria M.D. 06/19/2020 8:37 PM
[2020-06-19] MEDS: SODIUM CHLORIDE 0.9% 1000ML 1,000 ML IV SCH (21:09)
[2020-06-19] MEDS: GABAPENTIN 300 MG CAP PO SCH ×2 (21:40→23:32)
[2020-06-19] MEDS: OXYBUTYNIN CHLORIDE XL 5 MG TABCR PO SCH (21:41)
[2020-06-19] MEDS: ZINC SULFATE 220 MG CAPSULE PO SCH (21:41)
[2020-06-19] MEDS: POTASSIUM CHLORIDE 10 MEQ TABCR PO SCH (21:41)
[2020-06-19] MEDS: ASCORBIC ACID 500 MG TAB PO SCH (21:42)
[2020-06-19] MEDS: ACETAMINOPHEN 325 MG TAB PO SCH (21:43)
[2020-06-19] MEDS: METOPROLOL TARTRATE 25 MG TAB PO SCH (21:43)
[2020-06-19] MEDS: GABAPENTIN 600 MG TAB PO SCH (21:54)
[2020-06-19] MEDS: HEPARIN SOD 5,000 UNIT/0.5 ML VIAL SQ SCH (21:55)
[2020-06-19] MEDS: INSULIN ASPART 100 UNITS/ML 3 ML PEN SC SCH ×2 (22:01→23:29)
[2020-06-20] MEDS: INSULIN ASPART 100 UNITS/ML 3 ML PEN SC SCH ×5 (04:48→21:35)
[2020-06-20] MEDS: HEPARIN SOD 5,000 UNIT/0.5 ML VIAL SQ SCH ×3 (05:07→21:34)
--- NOTE | 2020-06-20 05:29 | Electrocardiogram Report ---
Test Reason : Blood Pressure : / mmHG Vent. Rate : 089 BPM Atrial Rate : 089 BPM P-R Int : 170 ms QRS Dur : 066 ms QT Int : 372 ms P-R-T Axes : 078 028 038 degrees QTc Int : 452 ms Poor data quality, interpretation may be adversely affected Normal sinus rhythm Low voltage QRS Borderline ECG No previous ECGs available Confirmed by Gerard Bradford ([id number]) on 06/20/2020 5:29:29 AM Referred By: REFERRED SELF Confirmed By:Gerard Bradford
[2020-06-20 08:06] LABS: Basophils # (auto) 0.03 K/uL (0-0.2); Basophils % (auto) 0.6 %; Eosinophils # (auto) 0.18 K/uL (0-0.5); Eosinophils % (auto) 3.8 %; Hematocrit (blood only) 28.8 % (37-47); Hemoglobin 8.8 g/dL (12.0-16.0); Immature Granulocytes # (auto) 0.01 K/uL (0.00-0.02); Immature Granulocytes % (auto) 0.2 %; Lymphocytes # (auto) 1.23 K/uL (1.2-3.4); Lymphocytes % (auto) 25.6 %; Mean Corpuscular Hemoglobin 26.7 pg (25-34); Mean Corpuscular Hgb Conc 30.6 g/dL (32-36); Mean Corpuscular Volume 87.5 fL (80-100); Mean Platelet Volume 9.5 fL (7.4-10.4); Monocytes # (auto) 0.58 K/uL (0.11-0.59); Monocytes % (auto) 12.1 %; Neutrophils # (auto) 2.77 K/uL (1.4-6.5); Neutrophils % (auto) 57.7 %; Platelet Count 294 K/uL (130-400); RDW Standard Deviation 48.3 fL (36.4-46.3); Red Blood Count 3.29 M/uL (4.2-5.4)
[2020-06-20] MEDS: BUMETANIDE 1 MG TAB PO SCH (08:13)
[2020-06-20] MEDS: CITALOPRAM 20 MG TAB PO SCH (08:14)
[2020-06-20] MEDS: ASPIRIN 81 MG ECTAB PO SCH (08:14)
[2020-06-20] MEDS: METOPROLOL TARTRATE 25 MG TAB PO SCH ×2 (08:15→21:34)
[2020-06-20] MEDS: amLODIPine BESYLATE 5 MG TAB PO SCH (08:17)
[2020-06-20] MEDS: GABAPENTIN 300 MG CAP PO SCH ×2 (08:17→13:59)
[2020-06-20] MEDS: ACETAMINOPHEN 325 MG TAB PO SCH ×2 (08:21→21:33)
[2020-06-20] MEDS: ASCORBIC ACID 500 MG TAB PO SCH ×2 (08:21→21:34)
[2020-06-20] MEDS: CHOLECALCIFEROL 1,000 UNITS 25 MCG TAB PO SCH (08:22)
[2020-06-20] MEDS: SIMVASTATIN 40 MG TAB PO SCH (08:23)
[2020-06-20 08:28] LABS: BUN Creatinine Ratio 26.7 (10-20); Calcium 8.1 mg/dl (8.5-10.1); Creatinine Clr Calc Pharmacy 43.1 ml/min; Est GFR (African American) 48.7; Potassium 4.7 mmol/L (3.5-5.1)
[2020-06-20] MEDS ORDERED: ZOLPIDEM TARTRATE 5 MG TAB PO SCH (09:00)
[2020-06-20] MEDS: INSULIN GLARGINE SOLOSTAR 100 UNITS/ML 3 ML PEN SC SCH (09:01)
[2020-06-20] MEDS: ZINC SULFATE 220 MG CAPSULE PO SCH ×2 (09:03→21:38)
[2020-06-20] MEDS: MELOXICAM 7.5 MG TAB PO SCH (09:03)
[2020-06-20] MEDS: SODIUM CHLORIDE 0.9% 1000ML 1,000 ML IV SCH ×2 (09:06→21:37)
[2020-06-20 09:48] LABS: Estimated Average Glucose 154 mg/dl
--- NOTE | 2020-06-20 10:35 | Hospitalist Progress Note ---
Date of Service June 20, 2020 Assessment & Plan (1) Cellulitis of both lower extremities: Tessa is a 79-year-old female with a notable past medical history of ID-DM2 and HTN who presented to [facility] at the recommendation of her son for evaluation of increased confusion over several weeks, subsequently found to have bilateral rashes on her lower extremities b/l. She has been hemodynamically stable since her arrival. Confusion - Patient subjectively reports several weeks of intermittent confusion, primarily in the form of forgetfulness and task-completion difficulties; no h/o neurologic-like symptoms, including weakness/numbness/tingling/aphasia - CT Head performed in the ED was unremarkable - Neurological examination was unremarkable upon admission - BMP, CBC, UA were not revealing for a direct underlying cause / contribution to this confusion - Given the "several week" continuous history of this, low suspicion for TIAs at this time - Based on an otherwise negative work-up, this confusion could represent a degree of dementia and metabolic encephalopathy d/t an underlying infection (see below) - Continue to follow - MS and neurologic examinations daily - Note: patient's son is medical proxy. Cellulitis of the Lower Extremities (bilateral) - Examination consistent with non-purulent cellulitis with underlying venous stasis changes - Patient is afebrile and does not demonstrate leukocytosis; on review of history, denies recent constitutional symptoms - Started on cefepime in ER, will continue for now -- does report h/o anaphylaxis to sulfa and PCN medications - Wound care consulted for guidance and recommendations - CBC daily Insulin-Dependent DM2 - Pharmacy consulted upon admission for glycemic management, following:; - Hold home oral medications (Metformin 1g PO daily:) - Basal - Lantus 10U SQ daily (home dose) - Bolus (NovoLog per scale -- Goal range 110-140, CF: 25, carb ratio 1:8) Other Chronic Medical Conditions - ASCVD: Continue amlodipine, metoprolol tartrate, (2) Confusion: (3) Dyslipidemia: (4) IDDM (insulin dependent diabetes mellitus): (5) Mood disorder: (6) Hypertension: Admission and Anticipated Discharge Date Admission Date: June 19, 2020 Supervising Physician Co-Signing Physician Notes Resident Physician Supervision Note: I independently interviewed and examined the patient and verified the poole history and physical, reviewed labs and image studies, discussed the case with the resident Dr. Mcfadden and agree with the findings and care plan. Subjective Patient seen at the bedside this AM. MYRNA. Feels well overall this AM. On clarification/review of her history, says she has felt significantly confused over the last several weeks - didn't feel like herself. Says she'd frequently not know where she was/where she was doing. Never any loss of motor control, denies numbness/tingling that she can recall. Further, says she's been dealing with the "rashes on her legs" for the last several months - says they don't rosaura ther her. Doesn't recall ever receiving treatment. Denies any fevers, chills, night sweats. Denies pain. No chest pain, palpitations, or shortness of breath. Review of Systems Review of Systems: as per HPI Physical Exam Constitutional: Tired-appearing 79-year-old female who is lying back in her hospital bed, relaxed and watching TV, upon my arrival into the room. She is alert and oriented x 4 throughout our conversation, but does admit to intermittent confusion to my history taking. NAD. Respiratory: Normal respiratory effort with symmetric expansion of the chest. Cardiovascular: NRRR. S1 and S2 present without m/r/g. Gastrointestinal (Abdomen): NABS. Abdomen is soft, nontender, and nondistended to palpation. Skin: Bilateral, lichenified erythematous lesions noted to be on the anterior and posterior aspects of the calves bilaterally. They are mounted with a superficial, thick brown scale. On palpation, the lesions are warm to the touch and do sienna with pressure. Somewhat TTP depending on the area pressed. The DP pulses are 1+ bilaterally. Capillary refill < 3 seconds b/l. Results & Data Results & Data ([facility]) Vital Signs (Past 12 Hours) Vital Signs Temp Pulse Resp BP BP Pulse Ox 06/20/20 07:28 36.7 C 77 16 135/75 94 06/19/20 23:49 37.0 C 88 20 120/71 97 Resident Activity Tracking Resident Involvement: Resident Care Provided Care Provided: Adult Hospital Medicine
--- NOTE | 2020-06-20 11:13 | Pharmacy Report ---
Pharmacy Glycemic Short Note 2 - Date of Service June 20, 2020 - Glycemic Short BSG Results (Last 24 hours): 06/19/20 06/19/20 06/19/20 11:52 21:29 23:26 Glucose 135 H POC Glucose 114 H 116 H 06/20/20 06/20/20 06/20/20 03:51 07:49 07:49 Glucose 98 POC Glucose 101 H 104 H OUTPATIENT ANTIDIABETIC REGIMEN: * Metformin 1gm PO daily * Lantus 10 units SQ daily * Humalog 4 units SQ TID with meals * HbA1c: 7.0% (06/20/20) ASSESSMENT: * Ms Parker is a 79yo diabetic admitted with BLE cellulitis/confusion. * BSGs have been well-controlled since admission. PLAN FOR INPATIENT GLYCEMIC CONTROL: * Hold outpatient oral diabetes medications * Basal insulin * Lantus 10 units SQ daily (home dose) * Bolus insulin * NovoLog per scale ACHS or Q6hrs while NPO * Goal Range: Low 110 mg/dL - High 140 mg/dL * Correction Factor: 25 mg/dL/unit * Nutritional / Prandial insulin per carb ratio of 1 unit per 8 grams CHO consumed PLAN FOR DISCHARGE: * HbA1c (7.0%) indicates appropriate glycemic control. * Do not anticipate any required changes to antidiabetic regimen, as long as pt does not report having episodes of hypoglycemia.
[2020-06-20] MEDS: CEFEPIME 2,000 MG in SYRINGE 0 ML IV SCH ×2 (12:18→22:29)
[2020-06-20] MEDS ORDERED: CEFEPIME 2,000 MG in SYRINGE 0 ML IV SCH (15:00)
[2020-06-20] MEDS: POTASSIUM CHLORIDE 10 MEQ TABCR PO SCH (21:34)
[2020-06-20] MEDS: GABAPENTIN 600 MG TAB PO SCH (21:34)
[2020-06-20] MEDS: OXYBUTYNIN CHLORIDE XL 5 MG TABCR PO SCH (21:34)
[2020-06-21] MEDS: HEPARIN SOD 5,000 UNIT/0.5 ML VIAL SQ SCH ×3 (06:10→20:14)
[2020-06-21 06:53] LABS: Basophils # (auto) 0.02 K/uL (0-0.2); Basophils % (auto) 0.4 %; Eosinophils # (auto) 0.19 K/uL (0-0.5); Eosinophils % (auto) 3.8 %; Hematocrit (blood only) 28.2 % (37-47); Hemoglobin 8.8 g/dL (12.0-16.0); Immature Granulocytes # (auto) 0.01 K/uL (0.00-0.02); Immature Granulocytes % (auto) 0.2 %; Lymphocytes % (auto) 29.7 %; Mean Corpuscular Hemoglobin 27.1 pg (25-34); Mean Corpuscular Hgb Conc 31.2 g/dL (32-36); Mean Corpuscular Volume 86.8 fL (80-100); Mean Platelet Volume 9.3 fL (7.4-10.4); Monocytes # (auto) 0.48 K/uL (0.11-0.59); Monocytes % (auto) 9.5 %; Neutrophils # (auto) 2.85 K/uL (1.4-6.5); Neutrophils % (auto) 56.4 %; Platelet Count 284 K/uL (130-400); RDW Coefficient of Variation 14.8 % (11.5-14.5); RDW Standard Deviation 46.7 fL (36.4-46.3); Red Blood Count 3.25 M/uL (4.2-5.4); White Blood Count 5.05 K/uL (4.8-10.8)
[2020-06-21 07:36] LABS: BUN Creatinine Ratio 23.4 (10-20); Calcium 8.2 mg/dl (8.5-10.1); Creatinine Clr Calc Pharmacy 39.9 ml/min; Est GFR (African American) 44.3; Est GFR (Non-African American) 38.2; Magnesium 1.9 mg/dl (1.8-2.4); Potassium 4.5 mmol/L (3.5-5.1)
[2020-06-21] MEDS: ZINC SULFATE 220 MG CAPSULE PO SCH ×2 (07:54→20:13)
[2020-06-21] MEDS: ASCORBIC ACID 500 MG TAB PO SCH ×2 (07:54→20:15)
[2020-06-21] MEDS: ASPIRIN 81 MG ECTAB PO SCH (07:55)
[2020-06-21] MEDS: CHOLECALCIFEROL 1,000 UNITS 25 MCG TAB PO SCH (07:55)
[2020-06-21] MEDS: CITALOPRAM 20 MG TAB PO SCH (07:55)
[2020-06-21] MEDS: BUMETANIDE 1 MG TAB PO SCH (07:56)
[2020-06-21] MEDS: METOPROLOL TARTRATE 25 MG TAB PO SCH ×2 (07:56→20:13)
[2020-06-21] MEDS: amLODIPine BESYLATE 5 MG TAB PO SCH (07:56)
[2020-06-21] MEDS: SIMVASTATIN 40 MG TAB PO SCH (07:57)
[2020-06-21] MEDS: MELOXICAM 7.5 MG TAB PO SCH (07:57)
[2020-06-21] MEDS: GABAPENTIN 300 MG CAP PO SCH ×2 (07:57→14:00)
[2020-06-21] MEDS: ACETAMINOPHEN 325 MG TAB PO SCH ×2 (07:58→20:13)
[2020-06-21] MEDS: INSULIN GLARGINE SOLOSTAR 100 UNITS/ML 3 ML PEN SC SCH (08:22)
[2020-06-21] MEDS: INSULIN ASPART 100 UNITS/ML 3 ML PEN SC SCH ×4 (08:23→20:56)
--- NOTE | 2020-06-21 09:56 | Hospitalist Progress Note ---
Date of Service June 21, 2020 Assessment & Plan (1) Cellulitis of both lower extremities: Tessa is a 79-year-old female with a notable past medical history of ID-DM2 and HTN who presented to [facility] at the recommendation of her son for evaluation of increased confusion over several weeks, subsequently found to have bilateral rashes on her lower extremities b/l. She has been hemodynamically stable since her arrival. Confusion - Patient subjectively reports several weeks of intermittent confusion, primarily in the form of forgetfulness and task-completion difficulties; no h/o neurologic-like symptoms, including weakness/numbness/tingling/aphasia - CT Head performed in the ED was unremarkable - Neurological examination was unremarkable upon admission - BMP, CBC, UA were not revealing for a direct underlying cause / contribution to this confusion - no electrolyte abnormalities through today - Given the "several week" continuous history of this, low suspicion for TIAs at this time - Based on an otherwise negative work-up, this confusion could represent a degree of dementia and metabolic encephalopathy d/t an underlying infection (see below) - Mentation much clear. Cellulitis of the Lower Extremities (bilateral) - Examination consistent with non-purulent cellulitis with underlying venous stasis changes - Patient is afebrile and does not demonstrate leukocytosis; on review of history, denies recent constitutional symptoms - Started on cefepime in ER, discontinued today - Initiate cefdinir 300mg PO q12h, which should be continued for a total of 4 more days (total of 7 days) - Reports h/o anaphylaxis to sulfa and PCN medications: noted - Wound care consulted for guidance and recommendations - As this may have a fluid-related component, will stop IVF for now, but continue Bumex -- counselled on importance of low salt intake, will put on low- salt diet - CBC daily Insulin-Dependent DM2 - Pharmacy consulted upon admission for glycemic management, following:; - Hold home oral medications (Metformin 1g PO daily:) - Basal - Lantus 10U SQ daily (home dose) - Bolus (NovoLog per scale -- Goal range 110-140, CF: 25, carb ratio 1:8) Other Chronic Medical Conditions - ASCVD: Continue amlodipine, metoprolol tartrate Dispo:this AM, patient did express concern about returning to her independent living situation, and thinks she may "extra help" upon returning home. She is understandably concerned about her confusion and wants to stay safe. - PT Evaluate and treat, alongside OT evaluate and treat ordered. Appreciate recs and insight. - Will work with Case Management pending evaluations to determine most appropriate next steps -- may require additional help at home - Note: patient's son is medical proxy. PPX: Heparin Code: DNR/DNI F/E/N: Stop IVF for now, low-salt diet (2) Confusion: (3) Dyslipidemia: (4) IDDM (insulin dependent diabetes mellitus): (5) Mood disorder: (6) Hypertension: Admission and Anticipated Discharge Date Admission Date: June 19, 2020 Supervising Physician Co-Signing Physician Notes Resident Physician Supervision Note: I independently interviewed and examined the patient and verified the poole history and physical, reviewed labs and image studies, discussed the case with the resident Dr. Mcfadden and agree with the findings and care plan. Subjective Patient seen at the bedside this AM. NAEO. Reports feeling "very good" this morning, and having more energy than prior. She did express concern about returning independently to home -- she worries about her confusion and wonders if she "might need extra help" given her recent bouts of confusion. Unable to identify specific concerns when prompted, but open to further evaluation of this. Denies fevers, chills, NS overnight. Slept fine. Good appetite. No chest pain, palpitations, SOB. No n/v. Legs don't hurt. No pain elsewhere. No further concerns. Review of Systems Review of Systems: as per HPI Physical Exam Physical Exam: Well-appearing 79 year old female who is smiling and freely interactive upon my arrival. She does express intermittent confusion throughout our conversation, but is objectively A+O x 4. NAD. Respiratory: normal respiratory effort, lungs clear to auscultation Cardiovascular: NRRR. S1 and S2 present without m/r/g. Skin: Compared to yesterday: Bilateral, lichenified erythematous lesions noted to be on the anterior and posterior aspects of the calves bilaterally that are maybe just slightly less red this AM. They are mounted with a superficial, thick brown scale. On palpation, the lesions are warm to the touch and do sienna with pressure. Somewhat TTP depending on the area pressed still. Results & Data Results & Data ([facility]) Vital Signs (Past 12 Hours) Vital Signs Temp Pulse Resp BP Pulse Ox 12/16/20 00:03 37.0 C 86 20 134/78 93 Resident Activity Tracking Resident Involvement: Resident Care Provided Care Provided: Adult Hospital Medicine
[2020-06-21] MEDS: CEFEPIME 2,000 MG in SYRINGE 0 ML IV SCH (11:22)
[2020-06-21] MEDS: POTASSIUM CHLORIDE 10 MEQ TABCR PO SCH (20:13)
[2020-06-21] MEDS: OXYBUTYNIN CHLORIDE XL 5 MG TABCR PO SCH (20:15)
[2020-06-21] MEDS: CEFDINIR 300 MG CAP PO SCH (20:15)
[2020-06-21] MEDS: GABAPENTIN 600 MG TAB PO SCH (20:16)
[2020-06-22] MEDS: HEPARIN SOD 5,000 UNIT/0.5 ML VIAL SQ SCH ×3 (05:12→20:57)
[2020-06-22 06:43] LABS: Basophils # (auto) 0.04 K/uL (0-0.2); Basophils % (auto) 0.6 %; Eosinophils % (auto) 4.2 %; Immature Granulocytes # (auto) 0.03 K/uL (0.00-0.02); Immature Granulocytes % (auto) 0.4 %; Lymphocytes # (auto) 1.37 K/uL (1.2-3.4); Lymphocytes % (auto) 19.2 %; Mean Corpuscular Hemoglobin 26.8 pg (25-34); Mean Corpuscular Hgb Conc 30.6 g/dL (32-36); Mean Corpuscular Volume 87.6 fL (80-100); Mean Platelet Volume 9.6 fL (7.4-10.4); Monocytes % (auto) 8.4 %; Neutrophils # (auto) 4.81 K/uL (1.4-6.5); Neutrophils % (auto) 67.2 %; Platelet Count 356 K/uL (130-400); RDW Coefficient of Variation 14.8 % (11.5-14.5); RDW Standard Deviation 47.2 fL (36.4-46.3); Red Blood Count 4.11 M/uL (4.2-5.4); White Blood Count 7.15 K/uL (4.8-10.8)
[2020-06-22 07:18] LABS: BUN Creatinine Ratio 22.7 (10-20); Creatinine Clr Calc Pharmacy 37.1 ml/min; Est GFR (African American) 40.6; Potassium 4.2 mmol/L (3.5-5.1)
--- NOTE | 2020-06-22 07:58 | Pharmacy Report ---
Glycemic Control Progress Note - Date of Service June 22, 2020 - Scope Glycemic Pharmacist consulted for glycemic control to write orders per [facility] inpatient glycemic control protocol. - Objective Accuchecks BSG(last 24 hours):: 06/21/20 06/21/20 06/21/20 11:57 16:41 20:31 Glucose POC Glucose 178 H 149 H 142 H 06/22/20 06/22/20 05:56 07:28 Glucose 120 H POC Glucose 102 H HbA1c:: Hemoglobin A1c 7.0 % (4.5-5.6) H 06/20/20 07:49 - Recent Pertinent Medications The patient is currently receiving: * Basal insulin: Lantus 10 units every 24 hours * Correctional Insulin: Novolog Correction per scale ACHS Goal Range: Low 110 mg/dL - High 140 mg/dL Correction Factor: 25 mg/dL/unit * Prandial insulin: Per carb ratio of 1 unit per 7 grams CHO consumed - Outpatient Anti-Diabetic Meds metformin 1 gm PO BID Lantus 10 units daily Humalog 4 units with meals - Assessment & Plan ASSESSMENT: * See progress note from 06/20/20 for more background info, in short: * Pt receiving SQ basal bolus insulin regimen for hyperglycemia secondary to baseline DM (outpatient regimen on hold). Patient on cefdinir for cellulitis of legs. * Patient is currently receiving an average of 31 units of insulin per day * 10 units of basal insulin * 21 units of prandial/correctional insulin * BSGs ranging 136 - 178 mg/dl over the past 24hrs * Changes needed to insulin regimen: * AM Fasting BSG = 102 mg/dl. This is in goal range for patient based on inpatient targets and co-morbidities. Therefore Basal insulin will be continued at 10 units daily. * Post-prandial BSGs are in range therefore no changes needed to CF/CR. * Total daily dose = ~30 units. * Additional notes / comments: hold metformin PLAN FOR INPATIENT GLYCEMIC CONTROL: * Continuing Lantus 10 units SQ daily * Continuing correction factor of 25 mg/dl/unit * Continuing carb ratio of 1 unit per 7 grams CHO consumed * Continuing goal range of Low 110 mg/dL - High 140 mg/dL RECOMMENDATIONS FOR DISCHARGE: * Patient's HbA1C well controlled - can continue home regimen as long as patient does not have any hypoglycemia at home. Thank you.
[2020-06-22] MEDS ORDERED: INSULIN GLARGINE SOLOSTAR 100 UNITS/ML 3 ML PEN SC SCH (09:00)
[2020-06-22] MEDS: INSULIN ASPART 100 UNITS/ML 3 ML PEN SC SCH ×4 (09:09→20:39)
[2020-06-22] MEDS: INSULIN GLARGINE SOLOSTAR 100 UNITS/ML 3 ML PEN SC SCH (09:11)
[2020-06-22] MEDS: ACETAMINOPHEN 325 MG TAB PO SCH ×2 (09:14→20:45)
[2020-06-22] MEDS: MELOXICAM 7.5 MG TAB PO SCH (09:14)
[2020-06-22] MEDS: BUMETANIDE 1 MG TAB PO SCH (09:14)
[2020-06-22] MEDS: ZINC SULFATE 220 MG CAPSULE PO SCH ×2 (09:14→20:43)
[2020-06-22] MEDS: METOPROLOL TARTRATE 25 MG TAB PO SCH ×2 (09:14→20:42)
[2020-06-22] MEDS: CITALOPRAM 20 MG TAB PO SCH (09:14)
[2020-06-22] MEDS: GABAPENTIN 300 MG CAP PO SCH ×2 (09:15→15:19)
[2020-06-22] MEDS: CEFDINIR 300 MG CAP PO SCH ×2 (09:15→20:46)
[2020-06-22] MEDS: amLODIPine BESYLATE 5 MG TAB PO SCH (09:15)
[2020-06-22] MEDS: ASCORBIC ACID 500 MG TAB PO SCH ×2 (09:15→20:46)
[2020-06-22] MEDS: ASPIRIN 81 MG ECTAB PO SCH (09:16)
[2020-06-22] MEDS: CHOLECALCIFEROL 1,000 UNITS 25 MCG TAB PO SCH (09:16)
[2020-06-22] MEDS: SIMVASTATIN 40 MG TAB PO SCH (09:16)
--- NOTE | 2020-06-22 18:38 | Hospitalist Progress Note ---
Date of Service June 22, 2020 Assessment & Plan (1) Cellulitis of both lower extremities: Tessa is a 79-year-old female with a notable past medical history of ID-DM2 and HTN who presented to [facility] at the recommendation of her son for evaluation of increased confusion over several weeks, subsequently found to have bilateral rashes on her lower extremities b/l. She has been hemodynamically stable since her arrival. Confusion - Patient subjectively reports several weeks of intermittent confusion, primarily in the form of forgetfulness and task-completion difficulties; no h/o neurologic-like symptoms, including weakness/numbness/tingling/aphasia - CT Head performed in the ED was unremarkable - Neurological examination was unremarkable upon admission - BMP, CBC, UA continue to be unrevealing of an association - Given the "several week" continuous history of this, low suspicion for TIAs at this time - Based on an otherwise negative work-up, this confusion could represent a degree of dementia and possibly metabolic encephalopathy d/t an underlying inf ection (see below) - Mentation similar today as it was yesterday without major changes - BMP qAM Cellulitis of the Lower Extremities (bilateral) - Examination most consistent with non-purulent cellulitis with underlying venous stasis changes - Patient continues to be afebrile and does not demonstrate leukocytosis; on review of history each morning, denies recent constitutional symptoms - Initially on cefepime, transitioned to cefdinir 300mg PO q12h -- continue until 06/25 (total of 7 days of treatment with ABX) - Reports h/o anaphylaxis to sulfa and PCN medications: noted - Wound care consulted for guidance and recommendations - Patient refused initial evaluation, will attempt to revisit subject 12 AM - As this may have a fluid-related component, will stop IVF for now, but continue Bumex -- counselled on importance of low salt intake, will put on low- salt diet - CBC daily Insulin-Dependent DM2 - Pharmacy consulted upon admission for glycemic management, following: - Hold home oral medications (Metformin 1g PO daily) - Basal - Lantus 10U SQ daily (home dose) - Bolus (NovoLog per scale -- Goal range 110-140, CF: 25, carb ratio 1:8) Acute Kidney Injury - Resolved. Other Chronic Medical Conditions - ASCVD: Continue amlodipine, metoprolol tartrate Dispo: Patient has some insight to confusion, did previously request help at home. - PT: Recommend continued PT and rehab via SNF - OT: Recommend rehab. - Anticipate d/c to SNF on 06/22, working with case management and sonManpreet - Note: patient's son is medical proxy. PPX: Heparin Code: DNR/DNI F/E/N: Low-salt diet (2) Confusion: (3) Dyslipidemia: (4) IDDM (insulin dependent diabetes mellitus): (5) Mood disorder: (6) Hypertension: Admission and Anticipated Discharge Date Admission Date: June 21, 2020 Supervising Physician Co-Signing Physician Notes Resident Physician Supervision Note: I independently interviewed and examined the patient and verified the poole history and physical, reviewed labs and image studies, discussed the case with the resident Dr. Mcfadden and agree with the findings and care plan. Subjective NAEO. Patient reports feeling well overall this morning. She did express confusion about where she slept last night -- not thinking that it was in the hospital. However, she was aware of why she was in the hospital now. Otherwise, she reports no pain. No feelings of chills or myalgias. No nausea, vomiting, shortness of breath. Has a good appetite and just ate her breakfast. No shortness of breath. Review of Systems Review of Systems: as per HPI Physical Exam Constitutional: Well appearing 79-year-old female who is intermittently confused regarding past events (e.g., where she slept last night) throughout our conversation, but otherwise is alert and oriented x 4. NAD. Respiratory: Good respiratory effort with symmetric expansion of the chest. Lungs CTAB without crackles or wheezes. Cardiovascular: NRRR. S1/S2 present without m/r/g. Results & Data Results & Data ([facility]) Vital Signs (Past 12 Hours) Vital Signs Temp Pulse Resp BP Pulse Ox 06/22/20 09:09 36.7 C 77 18 150/67 H 94 Resident Activity Tracking Resident Involvement: Resident Care Provided Care Provided: Adult [facility] Medicine
[2020-06-22] MEDS ORDERED: MELATONIN 3 MG TAB PO PRN (18:42)
[2020-06-22] MEDS: POTASSIUM CHLORIDE 10 MEQ TABCR PO SCH (20:43)
[2020-06-22] MEDS: OXYBUTYNIN CHLORIDE XL 5 MG TABCR PO SCH (20:45)
[2020-06-22] MEDS: GABAPENTIN 600 MG TAB PO SCH (20:46)
[2020-06-23 06:59] LABS: Basophils # (auto) 0.03 K/uL (0-0.2); Basophils % (auto) 0.4 %; Eosinophils # (auto) 0.11 K/uL (0-0.5); Eosinophils % (auto) 1.3 %; Hematocrit (blood only) 30.2 % (37-47); Hemoglobin 9.3 g/dL (12.0-16.0); Immature Granulocytes # (auto) 0.04 K/uL (0.00-0.02); Immature Granulocytes % (auto) 0.5 %; Lymphocytes # (auto) 1.32 K/uL (1.2-3.4); Lymphocytes % (auto) 15.7 %; Mean Corpuscular Hemoglobin 26.7 pg (25-34); Mean Corpuscular Hgb Conc 30.8 g/dL (32-36); Mean Corpuscular Volume 86.8 fL (80-100); Mean Platelet Volume 9.7 fL (7.4-10.4); Monocytes # (auto) 0.62 K/uL (0.11-0.59); Monocytes % (auto) 7.4 %; Neutrophils % (auto) 74.7 %; Platelet Count 320 K/uL (130-400); RDW Coefficient of Variation 14.9 % (11.5-14.5); RDW Standard Deviation 46.4 fL (36.4-46.3); Red Blood Count 3.48 M/uL (4.2-5.4); White Blood Count 8.42 K/uL (4.8-10.8)
[2020-06-23] MEDS: HEPARIN SOD 5,000 UNIT/0.5 ML VIAL SQ SCH ×2 (07:17→14:58)
[2020-06-23 07:31] LABS: BUN Creatinine Ratio 26.5 (10-20); Calcium 8.7 mg/dl (8.5-10.1); Creatinine Clr Calc Pharmacy 34.2 ml/min; Est GFR (African American) 36.8; Est GFR (Non-African American) 31.7; Potassium 4.6 mmol/L (3.5-5.1)
[2020-06-23 07:41] LABS: Thyroid Stimulating Hormone 0.778 uIu/ml (0.300-4.500)
--- NOTE | 2020-06-23 07:49 | Pharmacy Report ---
Pharmacy Glycemic Sign Off Nt - Date of Service June 23, 2020 - Assessment & Plan ASSESSMENT: * Pharmacy was consulted by Billy Dickson PA-C on 06/19/2020 for glycemic control and to write orders per [facility] inpatient glycemic control protocol. * Major changes made by pharmacy to antidiabetic regimen include: * initiation of patient's home Lantus regimen * initiation of Novolog * Patient has been receiving/requiring ~30 units of insulin per day for adequate glycemic control * BSGs ranging 102- 161 mg/dl * Regimen has only required minor adjustments over the past 48hrs to achieve this level of control * Do not anticipate further changes in patient status that would quickly deteriorate glycemic control (i.e. patient to be NPO for upcoming procedure, steroids tapering, starting tube feedings, etc). * Please see recommendations for outpatient antidiabetic regimen below. PLAN FOR INPATIENT GLYCEMIC CONTROL: No changes needed to current regimen. * Continue basal insulin with Lantus 10 units SQ daily * Continue NovoLog per scale ACHS/Q6hrs while NPO * Goal range = 110- 140 mg/dl * CF = 25 mg/dl/unit * CR = 1 unit for ever 7 g CHO consumed * Pharmacy is signing off of glycemic consult and will no longer be making adjustments to inpatient regimen. Please feel free to re-consult if needed. Thank you. DISCHARGE RECOMMENDATIONS: * A1c 7.0 % on 06/20/20 * Patient's HbA1C well controlled for her age and co-morbidities recommend continuing home regimen as an outpatient.
[2020-06-23] MEDS: CEFDINIR 300 MG CAP PO SCH (09:32)
[2020-06-23] MEDS: CHOLECALCIFEROL 1,000 UNITS 25 MCG TAB PO SCH (09:32)
[2020-06-23] MEDS: ACETAMINOPHEN 325 MG TAB PO SCH (09:32)
[2020-06-23] MEDS: METOPROLOL TARTRATE 25 MG TAB PO SCH (09:32)
[2020-06-23] MEDS: amLODIPine BESYLATE 5 MG TAB PO SCH (09:32)
[2020-06-23] MEDS: ASPIRIN 81 MG ECTAB PO SCH (09:32)
[2020-06-23] MEDS: BUMETANIDE 1 MG TAB PO SCH (09:32)
[2020-06-23] MEDS: ASCORBIC ACID 500 MG TAB PO SCH (09:32)
[2020-06-23] MEDS: MELOXICAM 7.5 MG TAB PO SCH (09:32)
[2020-06-23] MEDS: CITALOPRAM 20 MG TAB PO SCH (09:32)
[2020-06-23] MEDS: SIMVASTATIN 40 MG TAB PO SCH (09:32)
[2020-06-23] MEDS: GABAPENTIN 300 MG CAP PO SCH ×2 (09:33→14:56)
[2020-06-23] MEDS: ZINC SULFATE 220 MG CAPSULE PO SCH (09:33)
[2020-06-23] MEDS: INSULIN ASPART 100 UNITS/ML 3 ML PEN SC SCH ×3 (09:34→17:05)
[2020-06-23] MEDS: INSULIN GLARGINE SOLOSTAR 100 UNITS/ML 3 ML PEN SC SCH (09:34)
[2020-06-23] MEDS ORDERED: DOCUSATE SODIUM 100 MG CAP PO PRN (13:18)
--- NOTE | 2020-06-23 14:26 | Hospitalist Progress Note ---
Date of Service June 23, 2020 Assessment & Plan (1) Cellulitis of both lower extremities: Tessa is a 79-year-old female with a notable past medical history of ID-DM2 and HTN who presented to [facility] at the recommendation of her son for evaluation of increased confusion over several weeks, subsequently found to have bilateral rashes on her lower extremities b/l. She has been hemodynamically stable since her arrival. Confusion -- Likely Dementia - Patient subjectively reports several weeks of intermittent confusion, primarily in the form of forgetfulness and task-completion difficulties; no h/o neurologic-like symptoms, including weakness/numbness/tingling/aphasia - CT Head performed in the ED was unremarkable - Neurological examination was unremarkable upon admission - BMP, CBC, UA continue to be unrevealing of an association - TSH and B12 WNL - MOCA testing 06/23 unable to be completed d/t agitation, but did demonstrate significant deficiencies in visuospatial/executive functioning, naming, and attention. Memory, language, abstraction, and delayed recall were not assessed before test was stopped. - Patient does demonstrate features of sundowning (agitation, delirium/confusion) on 06/22 - Mentation generally unchanged on day-by-day assessment - Given the several week continuous history of this, alongside similar "episodes" in past, this confusion likely represents dementia -- possibly with some exacerbation from cellulitis - BMP qAM Venous Stasis Changes / Cellulitis of the Lower Extremities (bilateral) - Examination most consistent with venous stasis changes +/- mild non-purulent cellulitis - Patient continues to be afebrile and does not demonstrate leukocytosis; on review of history each morning, denies recent constitutional symptoms - Initially on cefepime, transitioned to cefdinir 300mg PO q12h -- continue until 06/25 (total of 7 days of treatment with ABX) - Reports h/o anaphylaxis to sulfa and PCN medications: noted - Wound care consulted for guidance and recommendations - Patient refused initial evaluation, will attempt to revisit subject 12 AM - As this may have a fluid-related component, will stop IVF for now, but continue Bumex -- counselled on importance of low salt intake, will put on low- salt diet - CBC daily Insulin-Dependent DM2 - Pharmacy consulted upon admission for glycemic management, following: - Hold home oral medications (Metformin 1g PO daily) - Basal - Lantus 10U SQ daily (home dose) - Bolus (NovoLog per scale -- Goal range 110-140, CF: 25, carb ratio 1:8) Other Chronic Medical Conditions - ASCVD/HTN: Continue metoprolol tartrate, discontinue amlodipine --> initiate lisinopril 10mg PO qAM Dispo: Patient has some insight to confusion, did previously request help at home. - PT: Recommend continued PT and rehab via SNF - OT: Recommend rehab. - Anticipate d/c to SNF on 06/22, working with case management and sonManpreet - Note: patient's son is medical proxy. PPX: Heparin Code: DNR/DNI F/E/N: Low-salt diet (2) Confusion: * No focal neurological exam findings. * CT head unremarkable. * Likely encephalopathy secondary to underlying infectious changes. * Continue to monitor with treatment course. (3) Dyslipidemia: * Continue home medications. (4) IDDM (insulin dependent diabetes mellitus): * Appreciate pharmacy consultation for glycemic management. (5) Mood disorder: * Continue home medications as prescribed. (6) Hypertension: * Continue home medications as prescribed. Admission and Anticipated Discharge Date Admission Date: June 21, 2020 Subjective Patient did become agitated last night, temporarily requiring supervision. She was able to calm down and otherwise had a quiet night. Reports no problems or concerns this morning. Reports feeling pretty good, overall. Eating breakfast upon my arrival. She denies any pain, shortness of breath, fevers, or chills. No nausea or vomiting. We did discuss doing a MOCA assessment, which she was freely amenable too. Throughout testing, she did become intermittently frustrated and - near the end of the test - wanted to stop because she thought I was "working for some doctor to test her" and return negative results. Upon informing her I was her doctor, she persisted this alessandro ef. Did become anxious, but not agitated. Denied having any questions or concerns at this time. Denied any issues with her legs -- she thinks they look a little better. Review of Systems Review of Systems: as per HPI Physical Exam Constitutional: Well-appearing 79 year old female who is alert and engaged throughout our interaction. Throughout MOCA testing, she did become intermittently frustrated and agitated, and did express some statements that may be consistent with mild (but non-persisting) delusions. Otherwise, NAD. Respiratory: Normal respiratory effort, lungs are CTAB without crackles or wheezes Cardiovascular: NRRR. S1 and S2 present without m/r/g. Skin: Bilateral, lichenified erythematous lesions noted to be on the anterior and posterior aspects of the calves bilaterally that have an unchanged appearance. They are mounted with a superficial, thick brown scale that does look less (e.g., some may have fallen off) from her first day on admission.. On palpation, the lesions are warm to the touch and continue to sienna with pressure. Somewhat TTP depending on the area pressed. Psychiatric: Orientation: alert Apperance: appropriately dressed Eye Contact: good eye contact Speech: normal rate/rhythm/volume of speech Affect: + irritable affect Mood: + irritable mood Thought Process: linear/logical thought process Thought Content: + preoccupation and + delusions Results & Data Results & Data ([facility]) Vital Signs (Past 12 Hours) Vital Signs Temp Pulse Resp BP Pulse Ox 06/23/20 07:21 36.7 C 83 18 122/74 99
--- NOTE | 2020-06-23 16:38 | Discharge Summary ---
Date of Service June 23, 2020 Admission HPI Per Admitting Provider Patient is a 79-year-old female with a significant past medical history of diabetes, hypertension, mood disorder, and recurrent cellulitis to the lower extremities. Patient lives at a nursing facility and [place]. Son reports that the patient has been "loopy" for the past few weeks. He reports that she has been in contact with him by phone and states that she has been confused and feels as though she is living in someone else's house and she is being evicted. Per son, she has had a history of ESBL UTI as well. They did request that the patient be sent to our facility from her primary residence at [facility] versus [place] where she is usually treated. Upon evaluation in the emergency department, the patient is awake and alert. She is pleasantly confused at times. She knows that she is at a hospital. She knows she is in [place]. Otherwise, she is a poor historian. She complains of pain to the bilateral lower extremities. Otherwise, she offers no other complaints at this time. Admission Exam Per Admitting Provider VITAL SIGNS - Vital signs and nursing notes were reviewed. GENERAL - 79-year-old female appearing her stated age who is in no acute distress. Pleasantly confused. SKIN -significant erythema to the bilateral lower extremities from the mid calf to the feet with moderate edema and scaling of the skin. Moderately tender to touch. HEAD - NC/AT. EYES - PERRL with EOMI bilaterally. Sclera anicteric. EARS - No deformities of external structures noted on gross examination bilaterally. NOSE - Midline and without cyanosis. No epistaxis or purulent drainage noted. MOUTH/OROPHARYNX - Without perioral cyanosis. Buccal mucosa pink and dry. NECK - Neck with FROM. Supple to palpation. No nuchal rigidity. LUNGS - Chest wall symmetric without accessory muscle use, intercostals retractions, or central cyanosis. Normal vesicular breath sounds CTA B/L. No wheezes, rales, or rhonchi appreciated. CARDIAC - RRR with S1/S2. No murmur, rubs, or gallops appreciated. ABDOMEN - Abdominal contour obese without pulsations or visible masses. BS normoactive all four quadrants. No tenderness, palpable masses, hepatosplenomegaly, or ascites noted. EXTREMITIES - No clubbing or peripheral cyanosis. No pretibial edema present. +3/5 radial and dorsalis pedis pulses palpated throughout. +5/5 strength noted in UE/LE bilaterally. NEUROLOGIC - Cranial nerves II through XII grossly intact. Sensory intact to light touch throughout. PSYCH -patient is awake and alert. She knows that she is in [place] and had a hospital. She is able to answer simple questions appropriately. She is pleasantly confused at times. Principal Diagnosis Dementia Cellulitis Venous stasis changes Discharge Exam Constitutional Well-appearing 79 year old female who is alert and engaged throughout our interaction. Throughout MOCA testing, she did become intermittently frustrated and agitated, and did express some statements that may be consistent with mild (but non-persisting) delusions. Otherwise, NAD. Respiratory Normal respiratory effort, lungs are CTAB without crackles or wheezes Cardiovascular NRRR. S1 and S2 present without m/r/g. Skin Bilateral, lichenified erythematous lesions noted to be on the anterior and posterior aspects of the calves bilaterally that have an unchanged appearance. They are mounted with a superficial, thick brown scale that does look less (e.g., some may have fallen off) from her first day on admission. On palpation, the lesions are warm to the touch and continue to sienna with pressure. Somewhat TTP depending on the area pressed. Psychiatric Orientation: alert Apperance: appropriately dressed Eye Contact: good eye contact Speech: normal rate/rhythm/volume of speech Affect: + irritable affect Mood: + irritable mood Thought Process: linear/logical thought process Thought Content: + preoccupation and + delusions Discharge Data Allergies Allergy/AdvReac Type Severity Reaction Status Date / Time iodine Allergy Unknown Unverified 06/19/20 13:02 Penicillins Allergy Unknown Unverified 06/19/20 13:02 Sulfa (Sulfonamide Allergy Unknown Unverified 06/19/20 13:02 Antibiotics) Consultations 06/19/20 15:25 ED Decision to Admit Stat 06/19/20 19:14 Consult Case Management - Discharge Planning Routine Ordered Studies 06/19/20 13:02 CT head/brain wo con Stat 06/19/20 19:14 US venous doppler LE BI Stat Hospital Course (1) Cellulitis of both lower extremities: Tessa is a 79-year-old female with a notable past medical history of ID-DM2 and HTN who presented to [facility] at the recommendation of her son for evaluation of increased confusion over several weeks, subsequently found to have bilateral rashes on her lower extremities b/l. She has been hemodynamically stable since her arrival. Confusion - Patient subjectively reports several weeks of intermittent confusion, primarily in the form of forgetfulness and task-completion difficulties; no h/o neurologic-like symptoms, including weakness/numbness/tingling/aphasia - CT Head performed in the ED was unremarkable - Neurological examination was unremarkable upon admission - BMP, CBC, UA continue to be unrevealing of an association - TSH and B12 WNL - MOCA testing 06/23 unable to be completed d/t agitation, but did demonstrate significant deficiencies in visuospatial/executive functioning, naming, and attention. Memory, language, abstraction, and delayed recall were not assessed before test was stopped. - Patient does demonstrate features of sundowning (agitation, delirium/confusion) on 06/22 - Mentation generally unchanged on day-by-day assessment - Given the several week continuous history of this, alongside similar "episodes" in past, this confusion likely represents dementia -- possibly with some exacerbation from venous stasis irritation +/- ?cellulitis - Patient did not have recorded bowel movement prior to discharge - please continue Colace and consider adding Senna as needed - Consider integration of palliative care moving forward Venous Stasis Changes / Dermatitis vs. Cellulitis of the Lower Extremities (bilateral) - Examination most consistent with venous stasis changes +/- mild non-purulent cellulitis, especially considering: b/l appearance, absence of fever + constitutional symptoms, lack of infectious indicators on labs - Patient continues to be afebrile and does not demonstrate leukocytosis; on review of history each morning, denies recent constitutional symptoms - Initially on IV cefepime, transitioned to cefdinir 300mg PO q12h -- continue until 06/25 (total of 7 days of treatment with ABX) - Reports h/o anaphylaxis to sulfa and PCN medications: noted - Wound care consulted for guidance and recommendations - "Wash legs, moisturize; if draining, can cover with Kaltostat, ABDs, and Kerlix. Change every day as needed." - As this may have a fluid-related component, IVF were discontinued, as was amlodipine (replaced with lisinopril 10mg PO daily) Insulin-Dependent DM2 - Pharmacy consulted while inpatient to aid with management of ID-DM2 - Upon d/c, continue outpatient regimen: metformin 1000mg PO b.i.d., Lantus 10U daily, and HumaLog 4U with meals Acute Kidney Injury - Likely from dehydration with prerenal pattern of BUN/Cr of 26.5 (41/1.55) - Hold home Bumex for 2 days following discharge, then resume as prescribed - Continue to encourage good PO intake ASCVD/HTN: - Continue heart-healthy, low-salt diet - Continue metoprolol tartrate - Discontinue amlodipine --> initiate lisinopril 10mg PO qAM (as above) Follow-up Labs: Please re-check a BMP (for K+ after starting lisinopril, and BUN/Cr in setting of mild MARCELLUS) and CBC within 1 week of discharge. Follow-up Wound: Please utilize directions as above. If site begins looking infected, or if patient develops signs/symptoms consistent with a new infection, please consider antibiotics as needed. (2) Confusion: (3) Dyslipidemia: (4) IDDM (insulin dependent diabetes mellitus): (5) Mood disorder: (6) Hypertension: Total Time Total Time Spent Total Time Spent (In Minutes): see attending attestation Discharge Plan Discharge Items Patient Disposition: Home - Self-Care Reason For Visit: CELLULITIS, AMS Discharge Diagnosis: Dementia Possible Cellulitis Venous Stasis Changes Condition on Discharge: Good Activity: Per Instructions section Non-emergency contact: Primary Care Provider Call non-emergency contact if: you have any medication questions, your symptoms worsen, your pain is unusual for you, your temperature is above 101, your wound has increased redness, your wound has increased drainage and your wound pain has increased Follow-up/Referrals: Kit Cancino [Primary Care Provider] - Diet: Heart Healthy Addtl Attending Provider Instructions: You were seen at [facility] from 06/19 - 06/23 for evaluation of confusion alongside a rash on both of your legs. Upon your arrival, you underwent several tests to evaluate the case of your confusion - including a head CT scan, blood tests, urine test, and an ECG (a test that looks at your heart's electrical activity). These tests did not demonstrate any major findings suggestive of an underlying cause. While following you throughout the hospital, it would seem that the confusion and agitation you occasionally experience (and that people report to you) is likely consistent with processes in the brain suggestive of dementia -- possibly with contribution from irritation / inflammation from your rash (see below). You were monitored closely throughout your stay to further evaluate this cause. The rashes on your legs could certainly be consistent with cellulitis; given their appearance, you were started on antibiotics and monitored your closely. Wound care also came to you and gave recommendations. Reassuringly, there was no evidence of systemic involvement: your white blood cell count (the cells that fight infection, like cellulitis, in your body) remained normal, as did your blood pressure and pulse, and you remained afebrile, alongside denying symptoms of infectious illness each day. While you are to finish these antibiotics to completion, it is suspect that your rashes may actually represent chronic "venous stasis" changes (i.e., blood sits in the legs and irritates the skin, causing them to become [id number], hot, and itchy), maybe with a mild superficial infection, too. Upon discharge, please follow-up with your PCP to review this visit. If you experience any worsening of symptoms, or symptoms that are concerning to others, including significant confusion alongside fevers, chills, nausea, vomiting, worsening of the rash / spreading to other places, please call 911 or report to the ER as soon as possible for evaluation. Medication Changes: - STOP: amlodipine (blood pressure medication that can cause swelling occasionally, such as in the legs) - START: lisinopril 10mg once daily Pending Studies at Discharge: No Stand-Alone Forms: [facility], Smoking Cessation Medications and DC Order Prescriptions: New lisinopril 10 mg Tablet 10 mg PO QAM 30 Days Qty: 30 RF: 1 docusate sodium 100 mg Capsule 100 mg PO BID PRN (Reason: constipation) 10 Days Qty: 20 RF: 0 cefdinir 300 mg Capsule 300 mg PO Q12 2 Days Qty: 5 RF: 0 Continued acetaminophen 325 mg Tablet 650 mg PO BID RF: 0 gabapentin 600 mg tablet 600 mg PO HS RF: 0 citalopram 40 mg Tablet 20 mg PO DAILY RF: 0 oxybutynin chloride 10 mg tablet extended release 24hr 10 mg PO HS RF: 0 potassium chloride 10 mEq Tablet Extended Release 10 meq PO HS RF: 0 aspirin 81 mg Tablet,Delayed Release (Dr/Ec) 81 mg PO DAILY RF: 0 simvastatin 40 mg tablet 40 mg PO DAILY RF: 0 meloxicam 7.5 mg tablet 7.5 mg PO DAILY RF: 0 ascorbic acid (vitamin C) [Vitamin C] 500 mg Tablet 500 mg PO BID RF: 0 metformin 1,000 mg tablet 1,000 mg PO DAILY RF: 0 gabapentin 300 mg Capsule 300 mg PO BID RF: 0 bumetanide 1 mg Tablet 1 mg PO DAILY RF: 0 zinc gluconate 50 mg Tablet 50 mg PO BID RF: 0 insulin lispro [Humalog KwikPen Insulin] 100 unit/mL insulin pen 4 unit SUBCUT TID RF: 0 metoprolol tartrate 25 mg tablet 25 mg PO BID RF: 0 Lantus Solostar U-100 Insulin 100 unit/mL (3 mL) insulin pen 10 unit SUBCUT DAILY RF: 0 cholecalciferol (vitamin D3) [Vitamin D3] 125 mcg (5,000 unit) Tablet 125 mcg PO DAILY RF: 0 Discontinued amlodipine 5 mg tablet 5 mg PO DAILY RF: 0 zolpidem 5 mg tablet 5 mg PO DAILY RF: 0 doxycycline hyclate 100 mg tablet 100 mg PO DAILY RF: 0 Discharge Orders: Discharge Order (Routine); Ordered 06/23/20 Ordered By: Manpreet Mcfadden Admission Data Admit Date/Time: 06/21/20 09:34 Attending Provider: Melanie Atkins Admit Provider: Caleb Gaffney Primary Care Provider: Kit Cancino Other Providers: Caleb Gaffney Other Interventions: Discharge Summary Assessment (RN) Last Done: 06/23/20 16:28 Supervising Physician Co-Signing Physician Notes Resident Physician Supervision Note: I independently interviewed and examined the patient and verified the poole history and physical, reviewed labs and image studies, discussed the case with the resident Dr. Mcfadden and agree with the findings and care plan. Resident Activity Tracking Resident Involvement: Resident Care Provided Care Provided: Adult Hospital Medicine
[2020-06-24] MEDS ORDERED: lisinopril 10 MG TAB PO SCH (09:00)
--- NOTE | 2020-07-04 09:01 | Coding Query ---
A supporting diagnosis is required for the test/procedure performed on this patient in order for us to be reimbursed by the patient's insurance. Please provide a supporting diagnosis for the following test/procedure listed below next to the test name along with your signature. *If there is no additional diagnosis for this patient that would support the following test/procedure please document that below next to the test/procedure. Test(s)/Procedure(s) that require a supporting diagnosis: * [id number] VENOUS DOPPLER DIAGNOSIS: B/L Lower Extremity Edema DATE OF SERVICE: 06/19/20 Provider Signature: __Billy Dickson PA-C Date: ___07/04/2020____ Thank you Benedicto Valentine [facility] Information Management Once completed, please kindly fax back to [phone] For questions please call [phone] MICHAEL
== END 2020-06-23 17:30 ==
LOC: ED 11:06 → 2N 11:06 → SUATTDRO 16:45 → 2N 18:42